=== PATIENT | female | born 1935 | race Caucasian/White ===

== ENCOUNTER → 2023-12-25 10:49 | Outpatient (REF) | payer MEDICARE, SELFPAY | LOC: HWRCS 10:49 | PROVIDERS: ATTENDING PHYSICIAN Internal Medicine Cardiovascular Disease; FAMILY PHYSICIAN Family Medicine | DX: I35.0 Nonrheumatic aortic (valve) stenosis (principal); I34.2 Nonrheumatic mitral (valve) stenosis; I35.1 Nonrheumatic aortic (valve) insufficiency; I34.0 Nonrheumatic mitral (valve) insufficiency; I10 Essential (primary) hypertension | CPT/HCPCS: 93306 ==

== ENCOUNTER → 2024-04-19 11:25 | Outpatient (REF) | payer MEDICARE, SELFPAY | LOC: MRI 3T 11:25 | PROVIDERS: ATTENDING PHYSICIAN Physician Assistant; FAMILY PHYSICIAN Family Medicine | DX: M54.16 Radiculopathy, lumbar region (principal) | CPT/HCPCS: 72148 ==

== ENCOUNTER 2024-12-22 18:10 | Inpatient (IN) | payer MEDICARE, SELFPAY ==
[2024-12-22] VITALS (21 sets, daily range): BP systolic 101–143; BP diastolic 61–108; BMI 28.7
--- NOTE | 2024-12-22 15:53 | ED.GENMED ---
History of Present Illness
General
Chief Complaint: Heart Rate Problem
Source: patient and family
Time Seen by Provider: 12/22/24 15:36
History of Present Illness
History of Present Illness:
This patient is an 89-year-old female presents the emergency department accompanied by her daughter and. She says she has been 'not feeling up to par' with increasing stress for the past week. She notes intermittent episodes throughout the week
where she feels like her heart is racing and then it spontaneously resolves. Today, while going upstairs she again felt like her heart was racing which prompted her visit here. She denies associated chest pain or pressure, leg swelling, abdominal
pain, nausea, vomiting, diaphoresis, dizziness, headache. She does note very minimal dyspnea with this now. She also has been reporting vague back and neck discomfort, mild, for at least the past week or 2, none currently. While she denies leg
swelling, she states that she gets discomfort in her left leg particular during the night. Patient denies other complaints.
Past History
Past History
ED Past Medical History: GERD, HTN, Hypercholesterolemia and Other (Arthritis)
Social History
Tobacco: Non-smoker
Alcohol: Occasional
Drug: None
Living: alone
Phy Exam
Physical Exam
Physical Exam:
GENERAL: Alert , in no apparent distress
EYE: pupils equal and reactive
NECK: Supple, no significant adenopathy.
ENT: o/p clr, mmm.
CARDIAC: Irregularly irregular, tachycardic
LUNGS: Clear breath sounds bilaterally, no acute respiratory distress, no wheezes rales or rhonchi
ABDOMEN: Soft, without focal tenderness, no r/g, no cvat
NEUROLOGICAL: Alert and oriented, no focal neuro deficits
SKIN: Warm and dry, skin intact.
MUSCULOSKELETAL: No edema, well perfused.
PSYCH: Normal and appropriate interaction.
Scores
[id number] Score for Afib Stroke Risk
Age in Years (65=0, 65-74=1, >/=75=2): > or = 75
Sex (Female=+1): Female
Congestive Heart Failure History (Yes=+1): No
Hypertension History (Yes=+1): Yes
Stroke/TIA/Thromboembolism History (Yes=+2): No
Vascular Disease History (Yes=+1): No
Diabetes Mellitus (Yes=+1): No
Score: 4
Anticoagulation Recommendations: Recommend anticoagulation (as validated in nonvalvular fib)
Course
Orders/Labs/Results
Orders:
Orders
12/22/24 Breakfast
Cholesterol Lowering
Cholesterol Lowering: Sodium, 2 Gram
12/22/24 15:22
ECG [Electrocardiogram (*1)] Urgent
Reason for Study: Palpitations
EKG- Treatment ONCE
12/22/24 15:35
EKG [Electrocardiogram (*1)] Urgent
Reason for Study: Palpitations
12/22/24 15:36
EKG- Treatment ONCE
12/22/24 15:39
Complete Blood Count/With Diff Urgent
Comprehensive Metabolic Panel Urgent
12/22/24 15:51
Heparin 4,000 units IV NOW STA
12/22/24 15:52
Diltiazem 125 mg/125 ml Nss [Cardizem] 125 mg in 125 ml IV NOW
Initial dose in mg/hr, then titrate:: 5
Titrate to keep:: Heart rate 80-100 bpm
Titrate by mg/hr:: 5 mg/hr
Frequency of titrations (minutes):: 15
Maximum dose in mg/hr:: 15
Diltiazem HCl [Cardizem] 20 mg IV NOW STA
CR Chest - 2 Views Urgent
Comment:
Reason For Exam: new onset afib
US Periph Venous LOWER Ext LT Urgent
Comment:
Reason For Exam: pain
12/22/24 16:00
Heparin 26844 Units/250 ml 25,000 units in 250 ml IV PER PROTOCOL
Weight to be used for heparin protocol in kilograms (kg):: 68.2
Protocol:: Cardiac Tx/Acute Coronary
PTT Goal Range to be used:: PTT 73 to 111 seconds
Order type:: Initial
INITIAL Infusion Dose (UNITS/KG/hr) & then follow protocol:: 12 units/kg/hr
Infusion Dose in UNITS/hr & then follow protocol (UNITS/hr):: 800
INFUSION RATE in mL/hr & then follow protocol (mL/hr):: 8
PTT less than or equal to 64 seconds:: Increase rate by 200 units/hr (+ 2 mL/hr)
PTT 64.1 to 72.9 seconds:: Increase rate by 100 units/hr (+ 1 mL/hr)
PTT 73 to 111 seconds:: Target Range. No change in rate.
PTT 111.1 to 130.9 seconds:: Decrease rate by 100 units/hr (- 1 mL/hr)
PTT 131 to 199.9 seconds:: HOLD for 1 hr. Then decrease rate by 200 units/hr (- 2 mL/hr)
PTT greater than or equal to 200 seconds:: HOLD for 2 hrs & Notify Provider. Then decrease by 200 units/hr (-
2 mL/hr)
Lab follow-up:: Each change, PTT q6h until 2 consecutive are therapeutic. Then PTT
daily.
12/22/24 16:07
0.9% Sodium Chloride 250 ml [Nss] 250 ml IV BOLUS
12/22/24 16:12
PTT Urgent
Comment: Obtain baseline before beginning heparin infusion if not already collected
Prothrombin Time Urgent
TSH Urgent
12/22/24 16:51
Troponin I Urgent
12/22/24 17:36
Admit/Transfer Patient As Directed
Co-Sign Provider:
Level of Care: Inpatient admission
Assign to:: IVU
Physician / Group: rylee delcid
Diagnosis: atrial fib with RVR
Reason for Hospitalization: atrial fib with RVR
Expected length of stay greater than two midnights?: Yes
ELOS- Estimated Length of Stay in days: 3
I certify the patient meets the requirements for IP care: Yes
12/22/24 17:37
PRN Pain Medication Management As Directed
May give lesser potent ordered pain med per pt: Yes
preference::
Protocol:: Medication orders for pain may be administered in a
manner that supports deferring to patient preference
when the pt is:
- Requesting an ordered lesser potent pain medication.
Least to most potent pain medications are defined
as: acetaminophen < NSAID < tramadol < opioids
(morphine, oxycodone, hydromorphone).
- Requesting a lesser dose of the same medication IF
ORDERED.
- Requesting a less intrusive route of administration
if both routes are prescribed by the provider (PO <
IV).
12/22/24 17:38
Code Status As Directed
Resuscitation Status: Full Code
12/22/24 17:43
Add On- LAB Urgent
Tests Added?: PT/INR
12/22/24 20:37
Bisacodyl [Dulcolax] 10 mg RECTAL [id number] PRN
Diltiazem 125 mg/125 ml Nss [Cardizem] 125 mg in 125 ml IV PER PROTOCOL
Currently infusing. Continue current dose and titrate:: Yes
Titrate to keep:: Heart rate 80-100 bpm
Titrate by mg/hr:: 5 mg/hr
Frequency of titrations (minutes):: 15
Maximum dose in mg/hr:: 15
Docusate W/Senna [Senokot-S] 1 tablet PO BIDPRN PRN
Polyethylene Glycol Powder [Miralax] 17 grams PO DAILYPRN PRN
cycloSPORINE [Restasis 0.05% Ophthalmic Emulsion] 1 drops BOTH EYES BID
12/22/24 20:37
Echo 2D MMode Color/Doppler Routine
Reason for Study: sob
CARDIOLOGY CONSULT Routine
Consulting Provider: Bradley Hensley
Was physician already notified: Yes
Heparin Protocol- PTT Orders As Directed
PTT per Heparin protocol: -Obtain CBC and baseline PTT - if not already collected.
-Obtain PTT 6 hours from start of infusion. Then, every 6 hours until 2 consecutive
PTT's are therapeutic. Then, PTT Daily.
-With each rate change, obtain PTT every 6 hours until 2 consecutive PTT's are
therapeutic. Then, PTT Daily.
Activity As Directed
Activity Level: As Tolerated
Intake/ Output As Directed
Frequency: Per unit guidelines
Notify MD As Directed
Notify physician if: PTT is greater than or equal to 200.
Vital Signs As Directed
Frequency: Per unit guidelines
Weight As Directed
Frequency: Daily
12/22/24 22:00
Cetirizine HCl [Zyrtec] 10 mg PO HS
12/22/24 22:20
Magnesium Routine
12/23/24 06:00
Cardiovascular Evaluation IN AM
Comprehensive Metabolic Panel IN AM
TSH Reflex To Free T4 IN AM
12/23/24 08:00
Docusate Sodium [Colace] 300 mg PO DAILY
Irbesartan [Avapro] 150 mg PO DAILY
Meloxicam [Mobic] 7.5 mg PO DAILY
Pantoprazole [Protonix] 40 mg PO DAILY
Pravastatin Sodium [Pravachol] 40 mg PO DAILY
fluticasone propionate 2 spray NASAL DAILY
12/24/24 06:00
Complete Blood Count/No Diff Q2D
Comment: notify provider: Platelet count < 130,000 or decrease by 50% from baseline
Comprehensive Metabolic Panel IN AM
12/25/24 06:00
Comprehensive Metabolic Panel IN AM
12/26/24 06:00
Complete Blood Count/No Diff Q2D
Comment: notify provider: Platelet count < 130,000 or decrease by 50% from baseline
12/28/24 06:00
Complete Blood Count/No Diff Q2D
Comment: notify provider: Platelet count < 130,000 or decrease by 50% from baseline
12/30/24 06:00
Complete Blood Count/No Diff Q2D
Comment: notify provider: Platelet count < 130,000 or decrease by 50% from baseline
01/01/25 06:00
Complete Blood Count/No Diff Q2D
Comment: notify provider: Platelet count < 130,000 or decrease by 50% from baseline
01/03/25 06:00
Complete Blood Count/No Diff Q2D
Comment: notify provider: Platelet count < 130,000 or decrease by 50% from baseline
01/05/25 06:00
Complete Blood Count/No Diff Q2D
Comment: notify provider: Platelet count < 130,000 or decrease by 50% from baseline
01/07/25 06:00
Complete Blood Count/No Diff Q2D
Comment: notify provider: Platelet count < 130,000 or decrease by 50% from baseline
Abnormal Lab Results
12/22/24 12/22/24 12/22/24
15:39 16:12 16:51
RBC 3.69 L 10^6/uL
(4.20-5.40)
Hgb 11.3 L g/dL
(12.0-16.0)
Hct 33.3 L %
(37.0-47.0)
MPV 10.7 H fL
(7.4-10.4)
Lymphocytes % 19.5 L %
(20.5-51.1)
PT 15.1 H Sec
(11.4-14.6)
Chloride 110 H mmol/L
(98-107)
Carbon Dioxide 19 L mmol/L
(22-30)
BUN 35 H mg/dl
(7-17)
Glucose 118 H mg/dl
(70-99)
AST 60 H U/L
(14-36)
ALT 75 H U/L
(0-35)
Troponin I 0.042 H* ng/ml
12/22/24 15:39
12/22/24 15:39
Vital Signs
Initial and Last Documented VS:
Initial Vital Signs
Temp Pulse Resp BP Pulse Ox
98.2 F 164 18 142/86 97
12/22/24 15:28 12/22/24 15:28 12/22/24 15:28 12/22/24 15:28 12/22/24 15:28
Last Documented Vital Signs
Temp Pulse Resp BP Pulse Ox
97.9 F 87 16 116/61 95
12/22/24 22:06 12/22/24 22:06 12/22/24 22:06 12/22/24 22:06 12/22/24 22:06
*Pulse Oximetry
SaO2: 97
Oxygen Mode of Delivery: Room air
Patient hypoxic: no
*Critical Care Note
Total Time (30-74mins, 75-104mins- exclusive of procedures): 31
Update Note
Update Note:
Patient presents to the Emergency Department with __palpitations and mild dyspnea
Number and Complexity of Problems Addressed at the Encounter
� Chronic conditions affecting care:
� Acute Exacerbation and/or Progression of Chronic Illness:
� Differential Diagnosis includes: But not limited to hyperthyroidism, SVT, A-fib, a flutter, ACS, etc. etc.
Amount and/or Complexity of Data to be Reviewed and Analyzed
� I performed an independent evaluation of and my interpretation is:
EKG: Read by me, A-fib with RVR, no acute ischemia
CT:
Xrays:
Laboratory Studies: Mild anemia, normal white blood cell count, mild prerenal azotemia (patient reports poor p.o. intake today, IV fluids were started), nonspecific mild LFT abnormalities
Other:
� Review of other/old records reveals:
� Clinical information was obtained by an independent historian: Daughter and who was at bedside
� Prescriptions/Medications Considered but not given:
� Further testing considered but not performed:
Risk of Complications and/or Morbidity or Mortality of Patient Management
� Social determinants of health affecting care:
� Discussion with other providers (PCP, Hospitalists, Consultants, etc):
� Escalation of care including admission/observation vs risk of discharge considered: Patient in A-fib with RVR. Cardizem drip ordered with bolus, heparin drip ordered, Long discussion with patient and daughter regarding
findings here and plan of care. Patient states she is not on anticoagulation. She lives alone with her cat and has a very supportive family.
447 p,m Pt resting comfortably, cardizem gtt at 5, will increase to 10 given rate 110's. bp stable.
5:19 PM patient now on drip at 10, rate well-controlled, patient remains comfortable without new complaints. Chest x-ray pending, ultrasound pending. Patient will be admitted to the hospitalist with expected cardiology consult by them. Case
discussed with hospitalist via [place] text and patient updated
ED Attending Note
-
Portions of this chart may have been created with voice recognition software.� Occasional wrong word or��sound alike� substitutions may have occurred due to the inherent limitations of voice recognition software.
Discharge Plan
Departure
Patient Disposition: Admit
Date of Disposition: 12/22/24
Time of Disposition: 17:20
Admit to: Telemetry
Presentation/result/management discussed w/ accepting MD/DO: Hospitalist
Discharge Problem:
Atrial fibrillation
Interventions
Interventions:
*Risk Screen - Suicide Last Done: 12/22/24 15:29
*General Assessment Last Done: 12/22/24 15:29
*Neglect/Abuse Screening Last Done: 12/22/24 15:29
*ED- Fall Risk Assessment Last Done: 12/22/24 15:40
*ED COVID-19 Vaccine History Last Done: 12/22/24 15:46
*Nursing Disposition Last Done: 12/22/24 20:12
ED- Cardiac Assessment Last Done: 12/22/24 15:40
ED- Pulmonary Assessment Last Done: 12/22/24 15:40
Discharge Date and Time
Discharge Date/Time: 12/22/24 20:12
[2024-12-22 16:00] LABS: Hematocrit 33.3 % (37.0-47.0); Hemoglobin 11.3 g/dL (12.0-16.0); Mean Corp Hgb Conc. 33.9 g/dL (33.0-37.0); Mean Corpuscular Volume 90.2 fL (81.0-99.0); Nucleated Red Blood Cells % 0 %; Platelet Count 135 10^3/uL (130-400); Red Cell Dist. Width 13.8 % (11.5-14.5)
[2024-12-22] MEDS: CARDIZEM 125 IV (16:07)
[2024-12-22 16:08] LABS: ALT (SGPT) 75 U/L (0-35); AST (SGOT) 60 U/L (14-36); Albumin 4.4 g/dl (3.5-5.0); Alkaline Phosphatase 85 U/L (38-126); Blood Urea Nitrogen 35 mg/dl (7-17); Calcium 9.8 mg/dl (8.4-10.2); Carbon Dioxide 19 mmol/L (22-30); Chloride 110 mmol/L (98-107); Glucose 118 mg/dl (70-99); Potassium 4.9 mmol/L (3.5-5.1); Sodium 137 mmol/L (135-145); Total Protein 7.2 g/dl (6.3-8.2); eGFR > 60.00
[2024-12-22 16:45] LABS: APTT 28.1 Sec (23.4-35.0)
[2024-12-22] MEDS: HEPARIN 4000 UNITS IV (16:51)
[2024-12-22] MEDS: NSS 250 IV (16:53)
[2024-12-22] MEDS: HEPARIN 25000 UNITS/250 ML IV (17:14)
--- NOTE | 2024-12-22 17:21 | HPS.HSE ---
Family Physician
-
Family Physician: Kenan Jaffe
Chief Complaint
-
elevated HR.
History of Present Illness
89-year-old female with past medical history for hypertension, hypercholesterolemia, GERD presented to us with racing of her heart for past one week. she feels it with exertion, it gets better when resting. she was also feeling sob with exertion.
today she felt the symptoms as she was on her steps and did not get better with rest and she felt dizzy when stood up. denied [place], or syncope. denied fever, chills,cough, congestion, chest pain. denied abdominal pain,,v,d. denied dysuria or
hematuria.
upon arrival noted atrial fib with RVR. initiated on heparin and cardizem drip.admitting for further management.
Medical History
Past Medical History
Past Medical History: Reports Other
Additional Past Medical History:
Hypertension, hyper cholesteremia, GERD, DJD,
Past Surgical History: Reports Other
Additional Past Surgical History:
knee replacement, bilateral cataract surgery, carpal tunnel release
Social History
Tobacco: Non-smoker
Alcohol: None
Drug: None
Employment: Employed
Family History
Family History: Not pertinent
Allergies / Home Medications
Allergies reflects when Allergies were last updated in [facility].
Home Medications with original date entered in [facility]
Allergy/Medication List:
Allergies
Allergy/AdvReac Type Severity Reaction Status Date / Time
No Known Drug Allergies Allergy - Verified 01/18/14 11:22
seasonal Allergy congestion Uncoded 01/18/14 11:22
Home Medications
acetaminophen 500 mg tablet (Tylenol Extra Strength) 500 mg PO DAILYPRN PRN pain 10/02/11
coenzyme Q10 100 mg capsule (Co Q-10) 100 mg PO DAILY 10/02/11
omeprazole 40 mg capsule,delayed release 40 mg PO DAILY 10/02/11
camphor-menthol 0.2 %-3.5 % topical gel 1 applic topical DAILYPRN PRN leg cramps 12/22/24
cetirizine 10 mg tablet (Zyrtec) 10 mg PO HS 12/22/24
cholecalciferol (vitamin D3) 25 mcg (1,000 unit) tablet 25 mcg PO DAILY 12/22/24
cimetidine 200 mg tablet 200 mg PO DAILYPRN PRN heartburn 12/22/24
cyclosporine 0.05 % eye drops in a dropperette 1 drp BOTH EYES BID 12/22/24
docusate sodium 100 mg tablet 300 mg PO DAILY 12/22/24
fluticasone propionate 50 mcg/actuation nasal spray,suspension 2 spray intranasal DAILY 12/22/24
irbesartan 150 mg tablet 150 mg PO DAILY 12/22/24
lactase 3,000 unit tablet (Lactaid) 3,000 unit PO AC PRN lactose intolerance 12/22/24
meloxicam 7.5 mg tablet 7.5 mg PO DAILY 12/22/24
pravastatin 40 mg tablet 40 mg PO DAILY 12/22/24
psyllium 1 packet PO DAILYPRN PRN constipation 12/22/24
simethicone 125 mg tablet 126 mg PO DAILYPRN PRN gas 12/22/24
therapeutic multivitamin 1 tab PO DAILY 12/22/24
Review of Systems
-
Constitutional: Reports No Symptoms
EENT: Reports No Symptoms
Respiratory: Reports No Symptoms
Cardiac: Reports Palpitations
Abdomen/GI: Reports No Symptoms
: Reports No Symptoms
Musculoskeletal: Reports No Symptoms
Skin: Reports No Symptoms
Neurological: Reports No Symptoms
Endocrine: Reports No Symptoms
Hematologic/Lymphatic: Reports No Symptoms
Psych: Reports No Symptoms
Physical Exam
Vital Signs
Vital Signs
Temp Pulse Resp BP Pulse Ox
98.2 F 121 15 114/91 92
12/22/24 15:28 12/22/24 16:45 12/22/24 16:45 12/22/24 16:45 12/22/24 16:45
Physical Exam
General: Well Developed, Well Nourished and No Apparent Distress
HEENT: NormoCephalic, Moist mucous membranes and Atraumatic
Respiratory: Clear
Cardiac: Irregular Rhythm and Tachycardia; No Murmur or Rub
GI: Soft, Non Tender, Non Distended and Normal Bowel Sounds; No Organomegaly
Rectal: Deferred by Provider
Musculoskeletal: No Clubbing, No Cyanosis and No Edema
Skin: No Rash
Neuro: AO x 3 and Nonfocal/grossly intact
Psych: Calm
Laboratory Results
-
12/22/24 15:39
12/22/24 15:39
Laboratory Results
APTT 28.1 Sec (23.4-35.0) 12/22/24 16:12
Total Bilirubin 0.8 mg/dl (0.2-1.3) 12/22/24 15:39
AST 60 U/L (14-36) H 12/22/24 15:39
ALT 75 U/L (0-35) H 12/22/24 15:39
Alkaline Phosphatase 85 U/L (38-126) 12/22/24 15:39
Data Reviewed
-
Lab Data: Labs Reviewed by me
Impression/Plan
-
#new onset atrial fib with RVR
-Cardizem and heparin drip
-obtain ECHO
-TSH, mag and cardiovascular eval
-cardiology consulted
-EKG with atrial fib wtih RVR
#anemia of chronic disease
-hgb stable at 11.3, no active bleeding
-ctm
#chronic transaminitis
-ast 60,alt 75
-CTm
#essential HTN/HLD
-irbesartan continued
-statin continued
#GERD
-PPI continued
#DVT prophylaxis
-heparin drip
#CODE status
-full code.
[2024-12-22 17:23] LABS: TSH 1.39 uIU/ml (0.47-4.68)
[2024-12-22 17:29] LABS: Troponin I 0.042 ng/ml
[2024-12-22 17:59] LABS: INR 1.16; PT 15.1 Sec (11.4-14.6)
--- NOTE | 2024-12-22 18:20 | W.PN.UPDATE ---
Update Note
Progress Note Update
This note serves as an addendum to the H&P by communications associate Joana SIMPSON�
HPI
89F HX HT, HLD, GERD pw racing heart for past one week
- racing especially withexertion- better when resting
- sob with exertion
- felt dizzy when stood up.
At ER:
noted atrial fib with RVR. initiated on heparin and cardizem drip
Relevant VS
Temp Pulse Resp BP Pulse Ox
98.2 F 109 19 132/78 93
12/22/24 15:28 12/22/24 17:30 12/22/24 17:30 12/22/24 17:30 12/22/24 17:30
PE
Gen: NAD
HEENT: moist OM
Neck: no JVD
Lungs: CTA
Cor: Irregular Rhythm and Tachycardia
Abdomen:�benign
POSTPARTUM RN: NFND
MS: no edema
Psych: Nl mood and affect
Relevant data�
12/22/24 12/22/24
15:39 16:51
RBC 3.69 L
Hgb 11.3 L
Hct 33.3 L
MPV 10.7 H
Lymphocytes % 19.5 L
Chloride 110 H
Carbon Dioxide 19 L
BUN 35 H
Glucose 118 H
AST 60 H
ALT 75 H
Troponin I 0.042 H*
EKG
ATRIAL FIBRILLATION WITH RAPID VENTRICULAR RESPONSE
NONSPECIFIC ST AND T WAVE ABNORMALITY
ABNORMAL ECG
ASSESSMENT & PLAN
New onset Prx AF with RVR
- agree with Cardizem gtt and and heparin gtt
- ECHO in AM
- TSH, Mg and cardiovascular eval
- [facility] card consult - Known to Dr Bhupinder Abernathy( [facility])
Elevated TPNI
- suspect NIMI
- Trend TPNI till peak
- await TTE
- Future ischemic evaluation ?
Anemia of chronic disease
- stable Hgb @ 11.3
- no active bleeding
chronic transaminitis
HLD
- Trend LFts
- cont MASH FILTER CLOTH CHANGER Statin
Essential HTN
-on MASH FILTER CLOTH CHANGER Irbesartan
- Statin continued
DVT Px: Heparin gtt
Full code
IP TLM
[2024-12-22] MEDS: RESTASIS 0.05% OPHTHALMIC EMULSION 1 DROPS BOTH EYES (21:56)
[2024-12-22] MEDS: ZYRTEC 10 MG PO (21:56)
[2024-12-22 22:47] LABS: APTT 65.3 Sec (23.4-35.0)
[2024-12-22 23:41] LABS: Magnesium 2.0 mg/dl (1.6-2.3)
[2024-12-23] MEDS: LIDOCAINE 4% PATCH 1 PATCH TOPICAL (03:08)
[2024-12-23 03:14] VITALS: BP 120/73
[2024-12-23 03:15] VITALS: BP 120/73
[2024-12-23 03:16] VITALS: BMI 28.7
[2024-12-23 05:48] LABS: Albumin 3.7 g/dl (3.5-5.0); Carbon Dioxide 23 mmol/L (22-30); Total Protein 6.2 g/dl (6.3-8.2)
[2024-12-23 05:56] LABS: APTT 71.5 Sec (23.4-35.0)
[2024-12-23 06:24] LABS: ALT (SGPT) 61 U/L (0-35); AST (SGOT) 41 U/L (14-36); Alkaline Phosphatase 85 U/L (38-126); Blood Urea Nitrogen 29 mg/dl (7-17); Calcium 9.1 mg/dl (8.4-10.2); Chloride 111 mmol/L (98-107); Estimated Creatinine Clearance 36 ml/min; Glucose 100 mg/dl (70-99); HDL Cholesterol 73 mg/dl; LDL Cholesterol, Calculated 84 mg/dl; Potassium 4.3 mmol/L (3.5-5.1); Sodium 139 mmol/L (135-145); Very Low Density Lipoprotein 12 mg/dl (0-30); eGFR > 60.00
[2024-12-23 08:17] VITALS: BP 125/91
[2024-12-23] MEDS: COLACE PO ×2 (08:27→08:31)
[2024-12-23] MEDS: PRAVACHOL 40 MG PO (08:27)
[2024-12-23] MEDS: CARDIZEM 125 IV (08:27)
[2024-12-23] MEDS: RESTASIS 0.05% OPHTHALMIC EMULSION 1 DROPS BOTH EYES ×2 (08:27→20:02)
[2024-12-23] MEDS: MOBIC 7.5 MG PO (08:27)
[2024-12-23] MEDS: PROTONIX 40 MG PO (08:27)
[2024-12-23] MEDS: AVAPRO 150 MG PO (08:27)
--- NOTE | 2024-12-23 08:36 | W.PN.HOSP.TC ---
Today's Communication/Plan
-
see a/p
Assessment / Plan
Assessment / Plan
Physical Exam
General: No acute distress, appears comfortable at this time
HEENT: NormoCephalic, Moist mucous membranes and Atraumatic
Respiratory: Clear
Cardiac: Irregular Rhythm non-tachy; No Murmur or Rub
GI: Soft, Non Tender, Non Distended and Normal Bowel Sounds; No Organomegaly
Musculoskeletal: No Clubbing, No Cyanosis and No Edema
Skin: No Rash
Neuro: AO x 3 conversant coherent
Psych: Calm
89F HTN HLD GERD here for new onset afib rvr
#new onset atrial fib with RVR
-Cardizem and heparin drip
-ECHO pending
-TSH, mag and cardiovascular eval
-cardiology consulted
-EKG with atrial fib wtih RVR
#anemia of chronic disease
-monitor
#mild transaminitis
-monitor
#essential HTN/HLD
-irbesartan continued
-statin continued
#GERD
-PPI continued
#DVT prophylaxis
-heparin drip
#CODE status
-full code.
discussed with patient and patient's daughter Dara
I spent a total of 50 minutes with the patient or on the floor. More than 50% of this time involved counseling and coordination of care.
Anticipated Discharge: 24 - 48 hours
Subjective/Interval History
-
Date of Service: December 23, 2024
No acute distress, sitting up comfortably in chair, overall reports feeling well. Denies palpitation or chest pain. Daughter Glory present during evaluation.
Objective Data
-
Labs:
Laboratory Results
12/22/24 12/22/24 12/23/24
22:20 23:15 05:05
APTT 65.3 H Cancelled 71.5 H
Sodium 139
Potassium 4.3
Chloride 111 H
Carbon Dioxide 23
BUN 29 H
Creatinine 0.9
Glucose 100 H
Calcium 9.1
Total Bilirubin 0.7
AST 41 H
ALT 61 H
Alkaline Phosphatase 85
12/23/24
12:15
APTT Pending
Sodium
Potassium
Chloride
Carbon Dioxide
BUN
Creatinine
Glucose
Calcium
Total Bilirubin
AST
ALT
Alkaline Phosphatase
Vital Signs:
Vital Signs
Temp Pulse Resp BP Pulse Ox
97.5 F 85 16 120/73 97
12/23/24 08:16 12/23/24 07:15 12/23/24 08:16 12/23/24 03:15 12/23/24 08:16
I&O
12/22/24 12/23/24 12/24/24
06:59 06:59 06:59
Intake Total 480 / 480
Balance 480 / 480
--- NOTE | 2024-12-23 09:04 | PTCARENOTE ---
Cardizem gtt infusing at 5 ml/hr and Heparin gtt infusing at 1000 units/hr. Tele remains afib. HR 80-100s. Assessment completed as documented. Pt has no complaints of pain/discomfort at this time. Plan of care reviewed w/ pt and verbalizes
understanding. Pt OOB in chair; call [facility]ison w/in reach.
--- NOTE | 2024-12-23 09:25 | CON.CAR ---
Addendum entered and electronically signed by Justin Cadena MD 12/23/24 12:35:
I saw and examined the patient.
The PAINTER APPRENTICE or PA's note was reviewed and I agree with the note.
Comment: General: Well developed, well nourished in NAD.
Neck: Supple, no JVD, HJR, carotids +2 B/L, no bruits bilaterally.
Heart: Non displaced PMI, irregular, no murmurs, No S3, S4, no rubs.
Lungs: Clear to auscultation bilaterally, no wheeze, rhonchi, rubs bilaterally,
normal expiratory phase.
Abdomen: Normal bowel sounds, soft, non-tender, non-distended.
Extremities: No clubbing, cyanosis or edema bilaterally.
Neuro: Grossly nonfocal, awake, alert and oriented x3.
Francoise has a history of hypertension, hyperlipidemia, reflux, aortic stenosis, mitral stenosis. She presents with palpitations and shortness of breath for 1 week. Palpitations were worse with climbing steps. She thinks she also may be retaining
fluid. Cardiology is consulted for A-fib.
She remains in A-fib with relatively poor heart rate control on IV Cardizem. There may be an element of CHF as well with pleural effusion noted on chest x-ray. Will repeat echocardiogram to assess and MS. Will start Eliquis 5 mg p.o. twice
daily and have case management assess pricing. If remains in A-fib we will do GABO/cardioversion on 9/3 AM. Discussed in detail with patient and daughter at bedside.
Original Note:
Consultation
Consultation Request
Date/Time Consultation Requested: 12/22/2024 20:37
Date/Time Consultation Performed: 12/23/2024 09:00
Requesting Provider: Mariana Mckeon
Performing Provider: Shaun Brown DO (Resident); Justin Cadena MD
Reason for Consultation: Atrial Fibrillation
Medical History
-
Chief Complaint: Palpitations, GREGG
History of Present Illness:
Mrs. Lopez is a 89F with a PMHx of HTN, HLD, GERD, nonrheumatic aortic stenosis, and nonrheumatic mitral stenosis who presented with palpitations x 1 week. Patient states that she has had 3 episodes of heart racing in the last week and all of
them associated with exertion, such as going up a flight of stairs. Associated with these episodes is dyspnea on exertion. She states that once she is at rest, the palpitations and GREGG resolve completely. She notes the feelings of GREGG may have
preceded this week, and that she often gets tired more easily with physical activity, though she was not concerned enough until this week. She otherwise denies a history of palpitations in the past, however, she notes that her PCP may have noted
irregular heart rhythm in the past, and she was sent to the field associate for follow up. She denies any recent illness or infections. Patient otherwise denies any CP, cough, vision changes (other than age-related), near-syncope, orthopnea, lower
extremity edema, calf tenderness.
ED COURSE
Irregular and tachycardic on examination.
EKG: Atrial fibrillation w/ RVR. Trop = 0.042.
Hb 11.3 (chronic), electrolytes WNL, Cr 0.9, TSH nml.
CXR: Tiny R pleural effusion, mild LLL developing pneumonia vs. atelectasis.
US LLE: No DVT.
Prior Studies
TTE 12/2023: EF 60%, aortic stenosis, severe mitral stenosis, severely dilated left atrium.
Past Medical History
Past Medical History: Other (HTN, HLD, GERD, nonrheumatic aortic stenosis, and severe nonrheumatic mitral stenosis)
Past Surgical History: Orthopedic
Social History
Tobacco: Non-Smoker
Alcohol: Occasional (every other day, 1 jey )
Drug: None
Personal:
Living: Alone (multi-story house. Movnig to single level abode at [place] in one month. )
Family History
Family History: Other (Father of [place] at 64; Mother at 94, had hx of unknown heart disease. Unsure of family history of a/fib. )
Allergies / Home Medications
Allergy/AdvReac Type Severity Reaction Status Date / Time
No Known Drug Allergies Allergy - Verified 01/18/14 11:22
seasonal Allergy congestion Uncoded 01/18/14 11:22
�Medication �Instructions �Recorded �Confirmed �Type
acetaminophen 500 mg tablet 500 mg PO DAILYPRN PRN pain 10/02/11 12/22/24 History
(Tylenol Extra Strength)
coenzyme Q10 100 mg capsule (Co 100 mg PO DAILY Supplement 10/02/11 12/22/24 History
Q-10)
omeprazole 40 mg capsule,delayed 40 mg PO DAILY Gastrointestinal 10/02/11 12/22/24 History
release Issue
camphor-menthol 0.2 %-3.5 % 1 applic topical DAILYPRN PRN leg 12/22/24 12/22/24 History
topical gel cramps
cetirizine 10 mg tablet (Zyrtec) 10 mg PO HS Supplement 12/22/24 12/22/24 History
cholecalciferol (vitamin D3) 25 25 mcg PO DAILY Supplement 12/22/24 12/22/24 History
mcg (1,000 unit) tablet
cimetidine 200 mg tablet 200 mg PO DAILYPRN PRN heartburn 12/22/24 12/22/24 History
cyclosporine 0.05 % eye drops in a 1 drp BOTH EYES BID Eye Condition 12/22/24 12/22/24 History
dropperette
docusate sodium 100 mg tablet 300 mg PO DAILY Gastrointestinal 12/22/24 12/22/24 History
Issue
fluticasone propionate 50 2 spray intranasal DAILY Allergies 12/22/24 12/22/24 History
mcg/actuation nasal
spray,suspension
irbesartan 150 mg tablet 150 mg PO DAILY Blood Pressure 12/22/24 12/22/24 History
lactase 3,000 unit tablet (Lactaid) 3,000 unit PO AC PRN lactose 12/22/24 12/22/24 History
intolerance
meloxicam 7.5 mg tablet 7.5 mg PO DAILY Pain 12/22/24 12/22/24 History
pravastatin 40 mg tablet 40 mg PO DAILY High Cholesterol 12/22/24 12/22/24 History
psyllium 1 packet PO DAILYPRN PRN 12/22/24 12/22/24 History
constipation
simethicone 125 mg tablet 126 mg PO DAILYPRN PRN gas 12/22/24 12/22/24 History
therapeutic multivitamin 1 tab PO DAILY Supplement 12/22/24 12/22/24 History
Review of Systems
-
All other systems: Negative unless noted
Physical Exam
Vital Signs
Temp Pulse Resp BP Pulse Ox
97.5 F 82 16 125/91 97
12/23/24 08:16 12/23/24 08:45 12/23/24 08:16 12/23/24 08:17 12/23/24 08:17
Lab Results
12/22/24 15:39
12/23/24 05:05
Troponin I 0.042 ng/ml H* 12/22/24 16:51
Physical Exam
General: No Apparent Distress and Comfortable
Respiratory: Clear and Non Labored Respirations; Negative Wheezes, Crackles or Rhonchi
Cardiac: Irregular Rhythm and Murmur (2/6 systolic ejection murmur); Negative Peripheral Edema or Calf Tenderness
Musculoskeletal: No Clubbing, No Cyanosis and No Edema
Skin: Warm
Neuro: Awake, Alert and Oriented
Psych: Calm
Impression / Plan
-
Francoise Lopez is a 89F with a PMHx of HTN, HLD, GERD, nonrheumatic aortic stenosis, and nonrheumatic mitral stenosis who presented with palpitations x 1 week particularly with exertion, found to be in atrial fibrillation with RVR in the ED with
tiny pleural effusion on CXR, admitted and started on Heparin and Cardizem drips. She continues to have an irregular rhythm, but is adequately rate controlled at an average of 90bpm. Unsure if this is new-onset paroxysmal atrial fibrillation within
the past week without any obvious inciting event, or if the patient has been having asymptomatic atrial fibrillation for some time, and only recently began having symptoms. [id number] score is 4, HAS-BLED Score is 2. We were consulted for
evaluation and management of atrial fibrillation.
PLAN
Continue Cardizem gtt
Update GABO in AM
NPO after midnight
If patient continues to be in A/fib, plan for cardioversion in AM if GABO is negative for thrombus
BNP in AM to r/o CHF in the setting of atrial fibrillation
Low-dose Lasix given small pleural effusion as seen on CXR
Will need to be discharged on anticoagulation; CM consult to derek Laura
Data Reviewed
-
EKG: Tracing Personally Visualized and interpreted and Report Reviewed by me
Radiology: Image Personally Visualized and interpreted, Report Reviewed by me and Discussed with Patient
Ultrasound: Report Reviewed by me and Discussed with Patient
Medical Tests (Nuc Med, Echo etc): Report Reviewed by me and Discussed with Patient
Labs: Labs Reviewed by me and Discussed with Patient
Old Records: Reviewed
Total Time Spent with Patient (in minutes): 42
[2024-12-23 09:46] LABS: Troponin I 0.058 ng/ml
[2024-12-23 11:24] VITALS: BP 123/76
[2024-12-23] MEDS: TYLENOL 650 MG PO (11:24)
[2024-12-23] MEDS: LASIX 40 MG IV (11:24)
[2024-12-23] MEDS: ELIQUIS 5 MG PO ×2 (11:33→20:02)
--- NOTE | 2024-12-23 11:44 | PTCARENOTE ---
Pt c/o R leg cramping. Pt reports that it is relieved w/ positional changes. Dr. Cadena aware and Tylenol ordered and administered.
--- NOTE | 2024-12-23 14:26 | CM ---
harmony williamson-at [facility]. her copay is $10/month
[2024-12-23] MEDS: COLACE 300 MG PO (14:38)
--- NOTE | 2024-12-23 15:50 | CM ---
spoke to pt in room, she is prev indep, lives alone in a 2 story home with 3 steps to enter. she has a cane she uses. she denies any dc planning needs. plan is for dc to home when medically stable.
[2024-12-23 19:53] VITALS: BP 109/62
[2024-12-23 23:02] VITALS: BP 127/67
[2024-12-23] MEDS: ZYRTEC 10 MG PO (23:03)
[2024-12-24] VITALS (10 sets, daily range): BP systolic 104–130; BP diastolic 49–90; BMI 28.6
--- NOTE | 2024-12-24 00:34 | PTCARENOTE ---
Rec'd pt at change of shift. Pt AAO*3, VSS, and Afib on TELE monitor. Pt with cardizem infusing as ordered. Pt aware of NPO status at midnight. Now resting with call davison in reach. See MAR and flowchart for full pt care and assessment.
[2024-12-24 03:42] LABS: Hematocrit 32.0 % (37.0-47.0); Hemoglobin 10.8 g/dL (12.0-16.0); Mean Corp Hgb Conc. 33.8 g/dL (33.0-37.0); Mean Corpuscular Volume 90.9 fL (81.0-99.0); Nucleated Red Blood Cells % 0 %; Platelet Count 126 10^3/uL (130-400); Red Cell Dist. Width 14.1 % (11.5-14.5)
[2024-12-24 04:09] LABS: ALT (SGPT) 49 U/L (0-35); AST (SGOT) 29 U/L (14-36); Albumin 3.7 g/dl (3.5-5.0); Alkaline Phosphatase 74 U/L (38-126); Blood Urea Nitrogen 34 mg/dl (7-17); Calcium 8.8 mg/dl (8.4-10.2); Carbon Dioxide 22 mmol/L (22-30); Chloride 109 mmol/L (98-107); Estimated Creatinine Clearance 32 ml/min; Glucose 111 mg/dl (70-99); Potassium 4.4 mmol/L (3.5-5.1); Sodium 138 mmol/L (135-145); Total Protein 6.0 g/dl (6.3-8.2); eGFR 53.85
[2024-12-24 04:38] LABS: Troponin I 0.052 ng/ml
[2024-12-24] MEDS: ELIQUIS 5 MG PO (07:56)
[2024-12-24] MEDS: PRAVACHOL 40 MG PO (07:56)
[2024-12-24] MEDS: PROTONIX 40 MG PO (07:56)
[2024-12-24] MEDS: MOBIC 7.5 MG PO (07:57)
[2024-12-24] MEDS: RESTASIS 0.05% OPHTHALMIC EMULSION 1 DROPS BOTH EYES (07:58)
[2024-12-24] MEDS: AVAPRO 150 MG PO (07:59)
[2024-12-24] MEDS: COLACE PO (08:00)
--- NOTE | 2024-12-24 08:43 | W.PN.HOSP.TC ---
Addendum entered and electronically signed by Krista Love MD 12/24/24 14:31:
Troponin elevation likely non-ischemic myocardial injury d/t afib
-trended to peak 0.058 since trended down
Original Note:
Today's Communication/Plan
-
discharge
Assessment / Plan
Assessment / Plan
Physical Exam
General: No acute distress, appears comfortable at this time
HEENT: NormoCephalic, Moist mucous membranes and Atraumatic
Respiratory: Clear
Cardiac: NSR; No Murmur or Rub
GI: Soft, Non Tender, Non Distended and Normal Bowel Sounds; No Organomegaly
Musculoskeletal: No Clubbing, No Cyanosis and No Edema
Skin: No Rash
Neuro: AO x 3 conversant coherent
Psych: Calm
89F HTN HLD GERD here for new onset afib rvr
#new onset atrial fib with RVR
-ECHO appreciated EF 58%, stage II diastolic dysfunction, moderate mitral valve stenosis,
-TSH wnl, mag wnl, Lipid panel wnl
-cardiology consult appreciated s/p successful GABO/Cardioversion 12/24
-Cardizem gtt transitioned to PO and hep gtt transitioned to Eliquis
-Stable for discharge home with outpatient follow up recommendations.
#anemia of chronic disease
-stable
#mild transaminitis
-resolved
#essential HTN/HLD
-irbesartan continued
-statin continued
#GERD
-PPI continued
#DVT prophylaxis
-Eliquis
#CODE status
-full code.
Total Time Preparing Discharge __40 minutes including examination of the patient, summary of the hospital stay, instructions for continuing care to all relevant caregivers; and preparation of discharge records, prescriptions, and referral
forms if necessary.
Anticipated Discharge: Today
Subjective/Interval History
-
Date of Service: December 24, 2024
No acute distress, sitting up comfortably in bed, overall reports feeling well s/p successful GABO/cardioversion. Denies new acute issues at this time. Eager to go home.
Objective Data
-
Labs:
Laboratory Results
12/24/24
03:28
WBC 5.9
Hgb 10.8 L
Hct 32.0 L
Plt Count 126 L
Sodium 138
Potassium 4.4
Chloride 109 H
Carbon Dioxide 22
BUN 34 H
Creatinine 1.0
Glucose 111 H
Calcium 8.8
Total Bilirubin 0.6
AST 29
ALT 49 H
Alkaline Phosphatase 74
Vital Signs:
Vital Signs
Temp Pulse Resp BP Pulse Ox
98.1 F 84 20 124/65 96
12/24/24 06:38 12/24/24 07:00 12/24/24 06:38 12/24/24 06:41 12/24/24 06:41
I&O
12/23/24 12/24/24 12/25/24
06:59 06:59 06:59
Intake Total 480 / 480 2039
Output Total 300 / 300 250 / 250
Balance 480 / 480 1740 / 1740 -250 / -250
--- NOTE | 2024-12-24 10:27 | W.PN.CD ---
Addendum entered and electronically signed by Shaun Wheatley MD 12/24/24 10:53:
I saw and examined the patient.
The Lead Caregiver's note was reviewed and I agree with the note.
Comment: Briefly, 89-year-old woman past medical history of aortic stenosis and mitral stenosis who presents with atrial fibrillation with rapid ventricular response
She underwent successful GABO/direct-current cardioversion earlier today and is currently maintaining sinus rhythm on review of telemetry
Add low-dose PO diltiazem 12 0mg daily for rate control
New to Eliquis 5 mg twice daily for risk reduction of cardioembolic stroke
No clear evidence of decompensated heart failure based on history or physical exam. Will not start standing Lasix dose at this time.
Stable for discharge from my perspective
Outpatient follow-up to be arranged
Original Note:
Today's Communication / Plan
-
.
Impression / Plan
-
Francoise Lopez is a 89F with a PMHx of HTN, HLD, GERD, nonrheumatic aortic stenosis, and nonrheumatic mitral stenosis who presented with palpitations x 1 week particularly with exertion, found to be in atrial fibrillation with RVR in the ED with
tiny pleural effusion on CXR, admitted and started on Heparin and Cardizem drips. Unsure if this is new-onset paroxysmal atrial fibrillation within the past week without any obvious inciting event, or if the patient has been having asymptomatic
atrial fibrillation for some time, and only recently began having symptoms. [id number] score is 4, HAS-BLED Score is 2. We were consulted for evaluation and management of atrial fibrillation. Patient elected for cardioversion and tolerated well.
PLAN
Stop Cardizem gtt
Start Diltiazem 120 mg daily
Start Eliquis 5mg BID
Okay to restart diet
S/p 1 dose lasix and euvolemic, defer decision to start Lasix for now, will discuss at outpatient visit.
Follow up in the office in 2 weeks
Physical Exam
Vital Signs/Labs
Vital Signs
Temp Pulse Resp BP Pulse Ox
98.1 F 84 20 124/65 98
12/24/24 06:38 12/24/24 07:00 12/24/24 06:38 12/24/24 06:41 12/24/24 08:00
12/23/24 12/24/24 12/25/24
06:59 06:59 06:59
Actual Weight 66.7 kg 66.4 kg
12/24/24 03:28
12/24/24 03:28
PT 15.1 Sec (11.4-14.6) H 12/22/24 16:12
INR 1.16 12/22/24 16:12
APTT Cancelled 12/23/24 12:15
Magnesium 2.0 mg/dl (1.6-2.3) 12/22/24 22:55
Triglycerides 64 mg/dl (10-149) 12/23/24 05:05
LDL Cholesterol, Calc 84 mg/dl 12/23/24 05:05
VLDL Cholesterol, Calc 12 mg/dl (0-30) 12/23/24 05:05
HDL Cholesterol 73 mg/dl 12/23/24 05:05
TSH 1.39 uIU/ml (0.47-4.68) 12/22/24 16:12
12/24/24
03:28
Bgc-V-Frldjshpuka Pept 2690
LAB Results
12/22/24 12/23/24 12/23/24
16:51 09:00 12:15
Troponin I 0.042 H* 0.058 H* Cancelled
12/24/24
03:28
Troponin I 0.052 H*
Physical Exam
Constitutional: No acute distress and Comfortable
Cardiovascular: Other (Regular rate and rhythm with occasional PACs, 2/6 KRYSTEN in the aortic area, no lower extremity edema)
Respiratory: Respiratory effort normal, Lungs clear to auscul., Wheeze Absent, Crackles Absent and Rhonchi Absent
Neuro/Psych: Alert
Data Reviewed
-
Date of Service: December 24, 2024
Medical Decision Making: Reviewed Test Results
Echo: Report Reviewed by me
Labs: Labs Reviewed by me
Total Time Spent with Patient (in minutes): 32
--- NOTE | 2024-12-24 12:21 | PTCARENOTE ---
Pt received this am in Afib, rate in the 80's to 100's. Pt returned from the GABO/CV in SB - SR, rate in the 50's to 70's. Pt denies any pain or sob. OOB to the chair for lunch. No c/o offered.
--- NOTE | 2024-12-24 14:46 | W.DCSUMMARY ---
Discharge Summary
Discharge Data
Date of Admission: 12/22/24
Date of Discharge: 12/24/24
-
Pending Results: No
Discharge Plan
-
Patient Disposition: Home (Routine Discharge)
Discharge Diagnosis/Procedures: Atrial Fibrillation with Rapid Ventricular underwent successful Cardioversion 12/24/24
Condition: Fair
Diet: Low Cholesterol and 2 Gram Sodium
Activity: As tolerated
Driving Restrictions: As prior to admission
Bathing Restrictions: None
Blood Work: Repeat CBC and CMP in 1 week of discharge. Results to be forwarded to your primary care provider and Miner Assistant. Script Provided to facilitate.
Activity Restrictions/Additional Instructions:
Follow up with primary care provider in 1 week of discharge and keep your appointment with Cardiology.
Eliquis has been prescribed for stroke risk reduction atrial fibrillation. With exception to your home Meloxicam medication, avoid further NSAID use (such as ibuprofen, aspirin, or naproxen) as additional NSAIDs may interact with Eliquis/Meloxicam
and further increase your risk of bleeding.
Cardizem has been prescribed for heart rate control- to reduce your risk recurrence of atrial fibrillation.
Please take medications as prescribed/recommended and follow up with primary care provider and/or other healthcare provider involved in your care for refills and/or further adjustment to your medication regimen as necessary.
Referrals:
Kenan Jaffe DO [Family Provider, Family Practice] - in one week
Shayla San CRNP [Specified Professional Personl, Cardiology] - 01/26/25 8:20 am
Referral Note: You have a cardiology follow-up appointment at the [place] office with Dr. Abernathy's nurse practitioner, Shayla. Please call with questions
Prescriptions:
New
diltiazem HCl 120 mg Capsule,Extended Release 24hr
120 mg PO DAILY Qty: 30 0RF
Eliquis 5 mg Tablet
5 mg PO BID Qty: 60 0RF
Continued
omeprazole 40 MG capsule,delayed release(DR/EC)
40 mg PO DAILY
acetaminophen [Tylenol Extra Strength] 500 MG tablet
500 mg PO DAILYPRN PRN (Reason: pain)
coenzyme Q10 [Co Q-10] 100 MG capsule
100 mg PO DAILY
cetirizine [Zyrtec] 10 mg Tablet
10 mg PO HS
pravastatin 40 mg tablet
40 mg PO DAILY
psyllium Packet
1 packet PO DAILYPRN PRN (Reason: constipation)
therapeutic multivitamin Tablet
1 tab PO DAILY
meloxicam 7.5 mg tablet
7.5 mg PO DAILY
cimetidine 200 mg Tablet
200 mg PO DAILYPRN PRN (Reason: heartburn)
lactase [Lactaid] 3,000 unit Tablet
3,000 unit PO AC PRN (Reason: lactose intolerance)
irbesartan 150 mg tablet
150 mg PO DAILY
simethicone 125 mg Tablet
126 mg PO DAILYPRN PRN (Reason: gas)
fluticasone propionate 50 mcg/actuation spray,suspension
2 spray INTRANASAL DAILY
docusate sodium 100 mg Tablet
300 mg PO DAILY
cyclosporine 0.05 % dropperette
1 drp BOTH EYES BID
cholecalciferol (vitamin D3) 25 mcg (1,000 unit) Tablet
25 mcg PO DAILY
camphor-menthol 0.2-3.5 % Gel
1 applic TOPICAL DAILYPRN PRN (Reason: leg cramps)
Discharge Orders:
Discharge Patient (As Directed); Ordered 12/24/24
Ordered By: Krista Love
Care Plan Goals
Care Plan Goals:
Problem: Readiness for enhanced knowledge related to diagnosis and treatment plan
Goal: Understand your diagnosis and treatment plan needs, including medications if applicable.
Instructions: Know your diagnosis, underlying causes and treatment plan options, including medications if applicable. Consult with your health care team to learn about your diagnosis and treatment plan, including medications if applicable.
Discharge Date and Time
Print Language: GREENLANDIC
--- NOTE | 2024-12-24 16:31 | PTCARENOTE ---
Pt remains in SR. Discharged to home with her daughter. Discharge instructions given and reviewed with good understanding and all questions answered.
== END 2024-12-24 17:02 | disposition home or self-care (01) | DRG 309 ==
LOC: IVU 18:10
PROVIDERS: Internal Medicine Cardiovascular Disease; Registered Nurse; ADMITTING PHYSICIAN Internal Medicine; ATTENDING PHYSICIAN Internal Medicine; EMERGENCY PHYSICIAN Emergency Medicine; FAMILY PHYSICIAN Family Medicine; OTHER PHYSICIAN Internal Medicine Cardiovascular Disease
PROC: 5A2204Z Restoration of Cardiac Rhythm, Single (ICD-10-PCS; 2024-12-24)
PROC: B246ZZ4 Ultrasonography of Right and Left Heart, Transesophageal (ICD-10-PCS; 2024-12-24)
DX: I48.91 Unspecified atrial fibrillation (principal); I5A Non-ischemic myocardial injury (non-traumatic); K59.00 Constipation, unspecified; I10 Essential (primary) hypertension; E78.00 Pure hypercholesterolemia, unspecified; K21.9 Gastro-esophageal reflux disease without esophagitis; Z96.653 Presence of artificial knee joint, bilateral; E73.9 Lactose intolerance, unspecified; D63.8 Anemia in other chronic diseases classified elsewhere; I34.2 Nonrheumatic mitral (valve) stenosis; Z82.49 Family history of ischemic heart disease and other diseases of the circulatory system; Z79.899 Other long term (current) drug therapy
CPT/HCPCS: 71046; 80053; 80061; 83735; 83880; 84443; 84484; 85025; 85610; 85730; 92960; 93005; 93306; 93312; 93320; 93325; 93971; 96365; 96366; 96367; 99291

== ENCOUNTER 2024-12-26 11:22 | Inpatient (IN) | payer MEDICARE, SELFPAY ==
[2024-12-25] VITALS (11 sets, daily range): BP systolic 123–174; BP diastolic 58–84; PULSE 70–79; BMI 27.4
[2024-12-25 08:20] LABS: Urine Character Clear (Clear)
[2024-12-25 08:27] LABS: Hematocrit 33.7 % (37.0-47.0); Hemoglobin 11.4 g/dL (12.0-16.0); Mean Corp Hgb Conc. 33.8 g/dL (33.0-37.0); Mean Corpuscular Volume 90.6 fL (81.0-99.0); Nucleated Red Blood Cells % 0 %; Platelet Count 149 10^3/uL (130-400); Red Cell Dist. Width 14.0 % (11.5-14.5)
--- NOTE | 2024-12-25 08:30 | EDRN ---
this RN was at the pts bedside assessing the pt, drawing blood work, and speaking with the pt and the pts daughter came in the room and stated, 'I'm her daughter what's going on?, this RN updated the pts daughter with the pts permission on what will
be done per the provider for the pt and the pts daughter rolled her eyes at this RN and sat down in the pts room
--- NOTE | 2024-12-25 09:00 | EDRN ---
while Ish DAMIAN and this RN were at the pts bedside the pt had a run of Aflutter in the 160's, Aflutter broke on it's own and the pts HR went back down to the 60-70's in sinus arrhythmia
--- NOTE | 2024-12-25 09:15 | EDRN ---
the pt pressed the call davison and immediately after the pts daughter came up to this RN at the nurses station and stated, 'My mother has to use the bathroom now thanks and she really doesn't feel good so i need a doctor to see her', this RN got up
and walked into the pts room and unhooked the pt with Ish DAMIAN's permission and she was able to ambulate to the bathroom with no issues
--- NOTE | 2024-12-25 09:38 | EDRN ---
the pt pressed the call davison and this RN entered the pts room, the pt stated that she needed to use the bathroom, the pt ambulated to the bathroom independently with no issues
--- NOTE | 2024-12-25 10:30 | ED.GENMED ---
History of Present Illness
<Ish Tenorio PA-C - Last Filed: 12/25/24 14:28>
General
Chief Complaint: Weakness
Source: patient, records and family
Time Seen by Provider: 12/25/24 08:44
History of Present Illness
History of Present Illness:
89-year-old female with past medical history of atrial fibrillation, hypertension, hyperlipidemia presenting to the emergency department via EMS from home where patient states she did not feel her usual self this morning, felt somewhat disoriented,
lightheaded and generally unwell although noting now she feels to be somewhat back to her usual self. Patient was recent at this facility for the last 3 days, discharged yesterday with a diagnosis of new onset atrial fibrillation and had been
cardioverted. She reports being started on Eliquis and another medication that she cannot think of, notes that she took both of these medications last night as prescribed. Patient states that when she woke up around 7 AM this morning she went to
go get out of bed and felt as if she did not know where she was and was trying to get to the bathroom, stumbled and struck the door frame but states she did not fall. Currently denying any headaches, visual changes, focal weakness or numbness,
chest pain or shortness of breath or abdominal pain. Daughter states that the patient called her and seemed confused and patient did not know how to dial 911 so the daughter had to do this for her. Daughter states patient still seems to be a
little bit slow cognitively.
Past History
<Ish Tenorio PA-C - Last Filed: 12/25/24 14:28>
Past History
ED Past Medical History: Arrthythmia, GERD, HTN, Hypercholesterolemia and Other (Arthritis)
ED Past Surgical History: Gynecological, Orthopedic, Tonsilectomy and Other
Social History
Tobacco: Non-smoker
Alcohol: Occasional
Drug: None
Personal:
Living: alone
Review of Systems
<Ish Tenorio PA-C - Last Filed: 12/25/24 14:28>
Review of Systems
All Other Systems: ROS reviewed and negative except as documented in HPI and ROS
Phy Exam
<Ish Tenorio PA-C - Last Filed: 12/25/24 14:28>
Physical Exam
Physical Exam:
GENERAL: Alert , in no apparent distress, able to ambulate on her own without difficulty and steadily
EYE: clear conjunctiva b/l
HEAD: NCAT
ENT: o/p clr, mmm.
CARDIAC: Regular rate and rhythm .
LUNGS: Clear breath sounds bilaterally, no acute respiratory distress, no wheezes/rales/rhonchi
ABDOMEN: Soft, without focal tenderness, no r/g, no cvat, negative Sanford sign, no tenderness at McBurney's point
NEUROLOGICAL: Alert and oriented x 3, answers questions appropriately
SKIN: Warm and dry, skin intact.
MUSCULOSKELETAL: No edema, well perfused.
PSYCH: Normal and appropriate interaction.
Scores
<JAUN Fatima Last Filed: 12/25/24 14:28>
Heart Failure Risk
Heart Failure Risk Score: Not Applicable
Heart Score for Chest Pain Patients
STEMI patient?: Not applicable
Withdrawal Assessment of Alcohol
Withdrawal Assessment Completed?: Not applicable
Course
<Ish Tenorio PA-C - Last Filed: 12/25/24 14:28>
Orders/Labs/Results
Orders:
Orders
12/25/24 07:55
Lidocaine HCl/Pf [Xylocaine-Mpf 1% Vial] 50 mg .ROUTE .STK-MED ONE
12/25/24 07:58
Electrocardiogram (*1) Urgent
Reason for Study: Fatigue / Weakness
12/25/24 07:59
EKG- Treatment ONCE
12/25/24 08:03
Complete Blood Count/With Diff Urgent
Urinalysis Reflex To Culture Urgent
Date Specimen was Collected: 12/25/24
Time Specimen was Collected: 07:59
12/25/24 09:17
CT Head W/o Iv Contrast Urgent
Comment:
Reason For Exam: confusion, recently started on DOAC
12/25/24 11:37
Comprehensive Metabolic Panel Urgent
12/25/24 13:01
Admit/Transfer Patient As Directed
Co-Sign Provider:
Level of Care: Observation services
Assign to:: Telemetry
Physician / Group: Krista Love
Diagnosis: TIA vs CVA
Reason for Telemetry: Arrhythmia
Date to Stop Telemetry: 12/28/24
Time to Stop Telemetry: 11:00
PRN Pain Medication Management As Directed
May give lesser potent ordered pain med per pt: Yes
preference::
Protocol:: Medication orders for pain may be administered in a
manner that supports deferring to patient preference
when the pt is:
- Requesting an ordered lesser potent pain medication.
Least to most potent pain medications are defined
as: acetaminophen < NSAID < tramadol < opioids
(morphine, oxycodone, hydromorphone).
- Requesting a lesser dose of the same medication IF
ORDERED.
- Requesting a less intrusive route of administration
if both routes are prescribed by the provider (PO <
IV).
12/25/24 13:06
Code Status As Directed
Resuscitation Status: Do not resuscitate
Reached after discussion with pt or family/Healthcare POA: Yes
DNR Bracelet Application ONCE
12/28/24 11:00
DC Protocol for Telemetry ONCE
Abnormal Lab Results
12/25/24 12/25/24
08:03 11:37
RBC 3.72 L 10^6/uL
(4.20-5.40)
Hgb 11.4 L g/dL
(12.0-16.0)
Hct 33.7 L %
(37.0-47.0)
MPV 11.6 H fL
(7.4-10.4)
Chloride 110 H mmol/L
(98-107)
Carbon Dioxide 21 L mmol/L
(22-30)
BUN 28 H mg/dl
(7-17)
Glucose 114 H mg/dl
(70-99)
ALT 43 H U/L
(0-35)
12/25/24 08:03
12/25/24 11:37
Vital Signs
Initial and Last Documented VS:
Initial Vital Signs
BP
171/67
12/25/24 08:02
Last Documented Vital Signs
Temp Pulse Resp BP Pulse Ox
98.5 F 74 16 171/76 97
12/25/24 08:23 12/25/24 08:23 12/25/24 08:23 12/25/24 08:23 12/25/24 10:31
Gordylt;Jordan Kraus, DO - Last Filed: 12/25/24 12:38>
Orders/Labs/Results
Orders:
Orders
12/25/24 07:55
Lidocaine HCl/Pf [Xylocaine-Mpf 1% Vial] 50 mg .ROUTE .STK-MED ONE
12/25/24 07:58
Electrocardiogram (*1) Urgent
Reason for Study: Fatigue / Weakness
12/25/24 07:59
EKG- Treatment ONCE
12/25/24 08:03
Complete Blood Count/With Diff Urgent
Urinalysis Reflex To Culture Urgent
Date Specimen was Collected: 12/25/24
Time Specimen was Collected: 07:59
12/25/24 09:17
CT Head W/o Iv Contrast Urgent
Comment:
Reason For Exam: confusion, recently started on DOAC
12/25/24 11:37
Comprehensive Metabolic Panel Urgent
12/25/24 13:01
Admit/Transfer Patient As Directed
Co-Sign Provider:
Level of Care: Observation services
Assign to:: Telemetry
Physician / Group: Krista Love
Diagnosis: TIA vs CVA
Reason for Telemetry: Arrhythmia
Date to Stop Telemetry: 12/28/24
Time to Stop Telemetry: 11:00
PRN Pain Medication Management As Directed
May give lesser potent ordered pain med per pt: Yes
preference::
Protocol:: Medication orders for pain may be administered in a
manner that supports deferring to patient preference
when the pt is:
- Requesting an ordered lesser potent pain medication.
Least to most potent pain medications are defined
as: acetaminophen < NSAID < tramadol < opioids
(morphine, oxycodone, hydromorphone).
- Requesting a lesser dose of the same medication IF
ORDERED.
- Requesting a less intrusive route of administration
if both routes are prescribed by the provider (PO <
IV).
12/25/24 13:06
Code Status As Directed
Resuscitation Status: Do not resuscitate
Reached after discussion with pt or family/Healthcare POA: Yes
DNR Bracelet Application ONCE
12/28/24 11:00
DC Protocol for Telemetry ONCE
Abnormal Lab Results
12/25/24 12/25/24
08:03 11:37
RBC 3.72 L 10^6/uL
(4.20-5.40)
Hgb 11.4 L g/dL
(12.0-16.0)
Hct 33.7 L %
(37.0-47.0)
MPV 11.6 H fL
(7.4-10.4)
Chloride 110 H mmol/L
(98-107)
Carbon Dioxide 21 L mmol/L
(22-30)
BUN 28 H mg/dl
(7-17)
Glucose 114 H mg/dl
(70-99)
ALT 43 H U/L
(0-35)
12/25/24 08:03
12/25/24 11:37
Vital Signs
Initial and Last Documented VS:
Initial Vital Signs
BP
171/67
12/25/24 08:02
Last Documented Vital Signs
Temp Pulse Resp BP Pulse Ox
98.5 F 74 16 171/76 97
12/25/24 08:23 12/25/24 08:23 12/25/24 08:23 12/25/24 08:23 12/25/24 10:31
<Ish Tenorio PA-C - Last Filed: 12/25/24 14:28>
MDM/Problems Addressed
Differential Diagnosis Includes:
Hospital induced delirium
Medication side effects
CVA/TIA
UTI
Anemia
Electrolyte Imbalance
Cardiac Arrhythmia
MDM/Problems Addressed:
89-year-old female presenting to the emergency department for evaluation of reported confusion/change in mental status. Recent admission here for new onset atrial fibrillation. Patient was cardioverted while here, discharged home on anticoagulants
and what appears to be Cardizem 120 mg daily. At time of my exam patient appears to be at her baseline, answering questions appropriately, was able to ambulate unassisted. Vital signs within normal limits. During my exam patient did have a brief
episode of a tacky arrhythmia, question atrial flutter with symptoms resolving and going back to a rate controlled normal sinus rhythm within 5 to 10 seconds. If the patient's symptoms were related to any acute neurological issue patient is already
anticoagulated and would not have any changes to her medications. Will obtain head CT given the reported stumble this morning as well as her change in mental status with being placed on a new anticoagulant. Patient is scheduled to move to [facility]
assisted living in the next few weeks, currently lives on her own. I did offer case management consult for possible visiting nurses if patient is able to go home.
Chronic conditions affecting care: Arrhythmia
<Ish Tenorio PA-C - Last Filed: 12/25/24 14:28>
*Pulse Oximetry
SaO2: 97
Oxygen Mode of Delivery: Room air
Patient hypoxic: no
*EKG
Heart Rate: 75
Rate: normal
Rhythm: sinus
Ischemia: no ischemia
*Show Host Interpretation
Rate: normal
Heart Rate: 76
Rhythm: sinus
*Critical Care Note
Total Time (30-74mins, 75-104mins- exclusive of procedures): Not Applicable
Data Reviewed
Review of Other/Old Records Reveals: Labs, Records and Discharge Summary
<Ish Tenorio PA-C - Last Filed: 12/25/24 14:28>
Patient Management
Discussion with other providers: Hospitalist
Escalation/DeEscalation of care consider admission/obs:
Patient's workup here is relatively unremarkable. Patient's daughter continues to express concern about this change in mental status and brief confusion. Given her age combined with the fact patient lives on her own in a multistory house we felt
it would be best that patient be readmitted for continued observation of this change in mental status. Question potential need for MRI as it is possible patient did have a subacute stroke given her newly diagnosed A-fib. Hospitalist team is aware
and accepts for continued evaluation and treatment.
ED Attending Note
<Ish Tenorio PA-C - Last Filed: 12/25/24 14:28>
-
Portions of this chart may have been created with voice recognition software.� Occasional wrong word or��sound alike� substitutions may have occurred due to the inherent limitations of voice recognition software.
<Jordan Kraus, DO - Last Filed: 12/25/24 12:38>
ED Attending Note
Patient seen and examined by attending physician: Yes
I performed the substantive portion of visit, reviewed & personally made and approve the management plan that is documented in note by myself or HAYLEY.: Yes
ED Attending Note:
I evaluated patient at bedside. Relatively unremarkable ED workup. However daughter is certain that this is a rather significant change in her mental status. The patient is on Eliquis for A-fib. She is not on any antiplatelets. When I asked the
patient to explain what is been going on recently she had trouble communicating and recalling recent events. Daughter states this is very abnormal for her. She does not feel comfortable with the idea of her being discharged without a more clear
plan. We have asked hospitalist to keep in the hospital again for more of an evaluation.
Discharge Plan
Departure
Patient Disposition: Admit
Date of Disposition: 12/25/24
Time of Disposition: 12:12
Presentation/result/management discussed w/ accepting MD/DO: Hospitalist
Discharge Problem:
Altered mental status
Interventions
Interventions:
*Risk Screen - Suicide Last Done: 12/25/24 08:23
*General Assessment Last Done: 12/25/24 08:23
*Neglect/Abuse Screening Last Done: 12/25/24 08:23
*ED- Fall Risk Assessment Last Done: 12/25/24 08:23
*ED COVID-19 Vaccine History Last Done: 12/25/24 08:23
*Nursing Disposition Last Done: 12/25/24 14:05
ED- Cardiac Assessment Last Done: 12/25/24 08:23
ED- Neurological Assessment Last Done: 12/25/24 08:23
ED- Pulmonary Assessment Last Done: 12/25/24 08:23
--- NOTE | 2024-12-25 11:56 | EDRN ---
the pts daughter approached this RN at the nurses station and stated to this RN, 'My mom needs help she's having another weird symptoms and she's having really bad acid reflux and she never has this and she appears to be in distress' this RN got up
from this RN's chair and the pts daughter roled her eyes at this RN, this RN entered the pts room and the pt is laying in stretcher in the lowest position, side rails up x2, HOB elevated, the pt did not appear to be in distress, the pts Sp02 was
98%, no c/o chest pain, no c/o SOB, this RN asked if the pt wanted to be moved up in bed more so that her head could be higher when sitting up and the pt said no, the pts daughter stated to this RN, 'I just feel like we have been here forever and
nothing has been done for her, she has all these weird symptoms like dry mouth and urinary frequency and she just doesn't feel good is she going to see a doctor?', this RN notified Ish DAMIAN and Dr. Kraus who is currently at the
pts bedside
[2024-12-25 12:07] LABS: ALT (SGPT) 43 U/L (0-35); AST (SGOT) 31 U/L (14-36); Albumin 4.7 g/dl (3.5-5.0); Alkaline Phosphatase 93 U/L (38-126); Blood Urea Nitrogen 28 mg/dl (7-17); Calcium 10.0 mg/dl (8.4-10.2); Carbon Dioxide 21 mmol/L (22-30); Chloride 110 mmol/L (98-107); Estimated Creatinine Clearance 41 ml/min; Glucose 114 mg/dl (70-99); Potassium 4.6 mmol/L (3.5-5.1); Sodium 142 mmol/L (135-145); Total Protein 7.8 g/dl (6.3-8.2); eGFR > 60.00
--- NOTE | 2024-12-25 12:10 | EDRN ---
Ish DAMIAN currently at the pts bedside
--- NOTE | 2024-12-25 12:20 | HPS.HSE ---
Family Physician
-
Family Physician: Kenan Jaffe
Chief Complaint
-
AMS
History of Present Illness
89F paroxysmal afib HTN HLD GERD from home w AMS. Patient was recently here for afib rvr, underwent successful GABO/cardioversion and was discharged day prior. Patient and daughter confirm that she was well last night following return to home.
Morning follow, however, patient felt unwell, not her usual self, felt confused and lightheaded. She did not know where she was and had trouble getting to her bathroom from her bed. Patient called daughter, not knowing how to call 911, prompting
daughter to call for her. ED evaluation largely unremarkable, CT head neg. Patient's last medication she took was Eliquis from night prior, did not take her morning meds. Symptoms largely improved during ED evaluation, daughter notes some memory
issues persist, patient asking repetitive questions, not normal for her. Patient hypertensive but otherwise vitals signs stable on room air.
Medical History
Past Medical History
Past Medical History: Reports Other (as above)
Past Surgical History: Reports Other (as above)
Social History
Tobacco: Non-smoker
Alcohol: Occasional
Drug: None
Personal:
Living: Alone
Employment: Retired
Family History
Family History: Not pertinent (reviewed)
Allergies / Home Medications
Allergies reflects when Allergies were last updated in [employer].
Home Medications with original date entered in [employer]
Allergy/Medication List:
Allergies
Allergy/AdvReac Type Severity Reaction Status Date / Time
No Known Drug Allergies Allergy - Verified 01/18/14 11:22
seasonal Allergy congestion Uncoded 01/18/14 11:22
Home Medications
acetaminophen 500 mg tablet (Tylenol Extra Strength) 500 mg PO DAILYPRN PRN mild pain 10/02/11
coenzyme Q10 100 mg capsule (Co Q-10) 100 mg PO DAILY Supplement 10/02/11
omeprazole 40 mg capsule,delayed release 40 mg PO DAILY Gastrointestinal Issue 10/02/11
camphor-menthol 0.2 %-3.5 % topical gel 1 applic topical DAILYPRN PRN leg cramps 12/22/24
cetirizine 10 mg tablet (Zyrtec) 10 mg PO HS Supplement 12/22/24
cholecalciferol (vitamin D3) 25 mcg (1,000 unit) tablet 25 mcg PO DAILY Supplement 12/22/24
cimetidine 200 mg tablet 200 mg PO DAILYPRN PRN heartburn 12/22/24
cyclosporine 0.05 % eye drops in a dropperette 1 drp BOTH EYES BID Eye Condition 12/22/24
docusate sodium 100 mg tablet 300 mg PO DAILY Gastrointestinal Issue 12/22/24
fluticasone propionate 50 mcg/actuation nasal spray,suspension 2 spray intranasal DAILY Allergies 12/22/24
irbesartan 150 mg tablet 150 mg PO DAILY Blood Pressure 12/22/24
lactase 3,000 unit tablet (Lactaid) 3,000 unit PO TIDPRN PRN lactose intolerance 12/22/24
meloxicam 7.5 mg tablet 7.5 mg PO DAILY Pain 12/22/24
pravastatin 40 mg tablet 40 mg PO DAILY High Cholesterol 12/22/24
psyllium 1 packet PO DAILYPRN PRN constipation 12/22/24
simethicone 125 mg tablet 126 mg PO DAILYPRN PRN gas 12/22/24
therapeutic multivitamin 1 tab PO DAILY Supplement 12/22/24
apixaban 5 mg tablet (Eliquis) 5 mg PO BID #60 tabs 12/24/24
diltiazem HCl 120 mg capsule,extended release 24 hr 120 mg PO DAILY #30 caps 12/24/24
Review of Systems
-
A 12 point ROS was completed and negative except as noted: Yes
Constitutional: Reports Other (as below)
Physical Exam
Vital Signs
Vital Signs
Temp Pulse Resp BP Pulse Ox
98.5 F 74 16 171/76 97
12/25/24 08:23 12/25/24 08:23 12/25/24 08:23 12/25/24 08:23 12/25/24 10:31
Physical Exam
General: Other (as below)
Laboratory Results
-
12/25/24 08:03
12/25/24 11:37
Laboratory Results
Total Bilirubin 0.8 mg/dl (0.2-1.3) 12/25/24 11:37
AST 31 U/L (14-36) 12/25/24 11:37
ALT 43 U/L (0-35) H 12/25/24 11:37
Alkaline Phosphatase 93 U/L (38-126) 12/25/24 11:37
Impression/Plan
-
ROS
General: Denies fever chills night sweats unexpected weight loss
Neuro: Denies seizure shaking loss of consciousness dizziness vertigo
Psych: denies depression hallucinations confusion manic episodes
Endocrine: Denies polyuria polydipsia polyphagia heat/cold intolerance
HEENT: Denies blindness visual disturbances epistaxis
Pulmonary: denies coughing hemoptysis sneezing sob dyspnea on exertion
Cardiovascular: denies chest pain palpitations leg swelling
Hematology: denies signs symptoms of anemia easy bruising/bleeding
Gastrointestinal: denies nausea vomiting diarrhea constipation hematemesis hematochezia melena
Genito-Urinary: denies retention incontinence dysuria reports urinary frequency
Musculoskeletal: reports joint pain denies weakness
Dermatology: denies rash laceration bruising
Physical Exam
General: No pallor, cyanosis, or jaundice.
HEENT: Throat clear. PERRLA Normocephalic atraumatic
NECK: Supple. No JVD Carotid Bruits
RESPIRATORY: Lungs clear to auscultation. No crackles wheezes stridor
CVS: S1, S2 normal. RRR. No murmur, rub or gallop.
ABDOMEN: Soft, non-tender. No distension. BS+/normal.
EXTREMITIES: No peripheral cyanosis or edema.
REGULATORY AGENCY DIRECTOR: AOx3 Conversant Coherent some memory issues word finding difficulties noted strength 5/5 all ext's Immediate and Delayed Recall intact
IMPRESSION:
89F paroxysmal afib HTN HLD GERD from home w AMS. Patient was recently here for afib rvr, underwent successful GABO/cardioversion and was discharged day prior current presentation. Patient and daughter confirm that she was well last night following
return to home. Morning follow, however, patient felt unwell, not her usual self, felt confused and lightheaded. She did not know where she was and had trouble getting to her bathroom from her bed. Patient called daughter, not knowing how to call
911, prompting daughter to call for her. ED evaluation largely unremarkable, CT head neg. Patient's last medication she took was Eliquis from night prior, did not take her morning meds. Symptoms largely improved during ED evaluation, daughter
notes some memory issues persist, patient asking repetitive questions, not normal for her. Hypertensive but otherwise vitals signs stable on room air.
PLAN:
#acute metabolic encephalopathy unclear etiology, suspect TIA vs CVA
CT Head appreciated no acute abn's
check brain MRI
neurochecks
Speech and Swallow eval
Physical Therapy
Permissive HTN <220/120
ECHO recently done, no need to repeat
Fall precautions
Check Orthostatic Vitals
#Recent Hx Afib RVR s/p successful GABO/Cardioverion 12/24
-Cont Eliquis and Cardizem with holding parameters
#anemia of chronic disease
monitor
#essential HTN/HLD
-hold irbesartan for now, cont Cardizem w/ holding parameters
-statin continued
#GERD
-PPI continued
#DVT prophylaxis
-Eliquis
#CODE status
-full code.
Discussed with patient and patient's daughter Dara
I spent a total of 77 minutes with the patient or on the floor. More than 50% of this time involved counseling and coordination of care.
--- NOTE | 2024-12-25 12:37 | EDRN ---
the pts pressed the call davison and immediately after the pts daughter approached this RN at the nurses station and stated that her mother needed to use the bathroom, this RN entered the pts room and started to removed the panel monitor and BP cuff
and Sp02 monitor and the pts daughter while watching stated to this RN, 'I mean don't strangle her with the wires or anything', this RN stated to the pts daughter that her choice of words was inappropriate and that this RN would do no such thing,
the pts daughter then stated, 'Well i mean there's wires on her chest that could wrap around her neck', this RN stated that this RN understood that however nothing is 'around' the pts neck', the pt was able to ambulate to the bathroom with no
issues, will continue to monitor the pt closely
--- NOTE | 2024-12-25 12:39 | EDRN ---
hospitalist currently at the pts bedside
--- NOTE | 2024-12-25 12:48 | EDRN ---
case management currently at the pts bedside
--- NOTE | 2024-12-25 13:16 | CM ---
Addendum entered by Neris Bravo 12/25/24 13:29:
SAHU letter explained; form signed @ [id number]
Original Note:
Met with patient and her daughter, Glory, at the bedside in the ED
Pharmacy verified: [facility] @ [address] [place] [address]
Lives alone; multilevel home; 3 steps to enter; 12 steps between floors; railings present on stairs; half bath on 1st floor; 2nd floor bath has walk-in shower
PLOF: patient reported she is independent stairs and ADLs; recent SOB climbing stairs; ambulates w/ a cane when she goes out of the house only
NO SNF or recent Home Health utilization history
Daughter will provide transport home
Plan: Anticipate discharge to home when medically stable; Case Management will monitor for discharge needs/services
--- NOTE | 2024-12-25 14:06 | EDRN ---
this RN called the receiving unit and notified them that paper report was going to be tubed up
--- NOTE | 2024-12-25 16:10 | PTCARENOTE ---
Received pt from ER via stretcher, accompanied by ER staff. Pt AAO x3, forgetful; anxious. ESTEBAN well, able to ambulate to bed with minimal assistance; denies weakness/dizziness, but sl unsteady with ambulation. Fall prec initiated. NIHSS 1- pt c/o
slight decreased sensation RT arm/Rt foot. VSS. Placed on telemetry:NSR. On room a ir- pulse ox 97%, no SOB noted. Abd soft, rounded, passed swallow eval; to start chol lowering/2 Gm Na diet. Pt DTV; states will void in BR; instructed to call
for assistance w/OOB activty. Afebrile; skin W/D/I. Oriented to 4 East, currently resting in bed, no c/o. Daughter at bedside. Will continue to monitor.
[2024-12-25] MEDS: RESTASIS 0.05% OPHTHALMIC EMULSION 1 DROPS BOTH EYES (20:46)
[2024-12-25] MEDS: ELIQUIS 5 MG PO (20:46)
[2024-12-26] VITALS (13 sets, daily range): BP systolic 121–173; BP diastolic 45–68; PULSE 64–72; O2SAT 98
[2024-12-26 07:03] LABS: Hematocrit 31.6 % (37.0-47.0); Hemoglobin 10.7 g/dL (12.0-16.0); Mean Corp Hgb Conc. 33.9 g/dL (33.0-37.0); Mean Corpuscular Volume 91.9 fL (81.0-99.0); Platelet Count 150 10^3/uL (130-400); Red Cell Dist. Width 14.0 % (11.5-14.5)
[2024-12-26 07:50] LABS: Blood Urea Nitrogen 21 mg/dl (7-17); Calcium 9.1 mg/dl (8.4-10.2); Carbon Dioxide 24 mmol/L (22-30); Chloride 110 mmol/L (98-107); Estimated Creatinine Clearance 41 ml/min; Glucose 104 mg/dl (70-99); HDL Cholesterol 71 mg/dl; LDL Cholesterol, Calculated 101 mg/dl; Magnesium 1.9 mg/dl (1.6-2.3); Potassium 4.5 mmol/L (3.5-5.1); Sodium 140 mmol/L (135-145); Very Low Density Lipoprotein 13 mg/dl (0-30); eGFR > 60.00
--- NOTE | 2024-12-26 08:30 | PTOTSP ---
Speech Language Pathology
Pt seen for speech/language evaluation via the Quick Aphasia Battery (QAB), form 1. Pt with an overall score of 9.82, indicative of skills WNL. Pt scored WNL on all subtests. No dysarthria noted, but lingual deviation to the R noted.
Hyponasality noted, but she reported this was baseline from chronic sinusitis. She also reported vision changes in R eye. Cognition not formally assessed this visit, but some conflicting statements and repetition noted.
Pt also seen for clinical bedside swallow evaluation. P.O. trials of regular solids and thin liquids provided. Adequate mastication, bolus formation, and A-P transit noted with no oral residue. No overt signs of aspiration.
Recommend:
(1) Regular solids/thin liquids
(2) General aspiration precautions
(3) Meds as tolerated
(4) PREFORMS LAMINATOR to continue to follow for cognitive tx
[2024-12-26] MEDS: PRAVACHOL 40 MG PO (09:26)
[2024-12-26] MEDS: PROTONIX 40 MG PO (09:26)
[2024-12-26] MEDS: CARDIZEM CD 120 MG PO (09:26)
[2024-12-26] MEDS: ELIQUIS 5 MG PO ×2 (09:26→19:47)
[2024-12-26] MEDS: VITAMIN D3 (cholecalciferol) 25 MCG PO (09:27)
[2024-12-26] MEDS: THERAGRAN 1 TABLET PO (09:27)
[2024-12-26] MEDS: RESTASIS 0.05% OPHTHALMIC EMULSION 1 DROPS BOTH EYES ×2 (09:27→19:47)
--- NOTE | 2024-12-26 12:17 | CON.NEURO4 ---
Addendum entered and electronically signed by Leonard Perez MD 12/26/24 14:20:
Studies reviewed.
I have personally examined the patient. I reviewed and agree with the POTATO SEED CUTTER's Note.
My addenda:
Awake, alert, interactive. No acute distress.
Speech intact.
Follows 2-step requests w/o difficulty. No tremor.
Extra-ocular movements grossly intact.
Facial movements full and symmetric. Hearing intact to normal conversational volume.
Normal UE movements bilaterally.
Neck: full ROM.
Chest: no dyspnea
Heart: no JVD
Ext: (-) Clubbing, (-) Cyanosis, (-) Edema
IMPRESSIONS/RECOMMENDATIONS:
Abrupt onset of change in mental status following newly diagnosed and treated atrial fibrillation. Patient received cardioversion but returned with confusion which is not resolved entirely as it is a recurrent as a lack of recall
Would continue the patient's usual apixaban which was initiated on 12/24/2024 despite medium sized stroke based on most recent information suggesting against hemorrhagic conversion and more likely that the patient may experience an acute ischemic
worsening without continued anticoagulation therapy
Advance the patient's cholesterol-lowering agent from outpatient use of pravastatin 40 mg to the use of atorvastatin 80 mg despite the patient's advanced age
Check blood work for potential metabolic abnormalities producing symptoms
Rehabilitation evaluations and treatment
Goal of normotension
Goal of normoglycemia
Patient was instructed not expect to return to driving especially based on her right homonymous hemianopsia
D/W patient / family
All questions answered.
Will continue to follow patient.
Original Note:
Documented by User: Renu Rea NP 12/26/24 13:49
Consultation - Neurology 4
-
CONSULTING PHYSICIAN: Leonard Perez MD
REFERRING PHYSICIAN: Hospitalists/Dr. Love
DICTATED BY: CARMELA Cohen
DATE/TIME OF REQUEST: 12/26/24
DATE/TIME OF CONSULTATION: 12/26/24
Reason for Consultation: Change in mental status
History of Present Illness:
This is an 89-year-old right-handed female who has presented to the hospital on 12/25/24 with report of confusion. Patient was recently hospitalized here from 12/22/24-12/24/24 with newly diagnosed Afib with RVR. She underwent GABO and cardioversion on
12/24/24 was started on apixaban for stroke prevention during admission. She was in her usual state at home until she woke up yesterday (12/25/24) and reports feeling not like her self, lightheaded, and per her daughter, confused, prompting them to
return to the ER for evaluation. On arrival in the ER, she was feeling improved but her daughter noted ongoing confusion which is abnormal for the patient. CT head was obtained on arrival and was negative for any acute abnormalities. She was not a
candidate for TNK/IAT due to use of apixaban in the past 12 hours and NIHSS <6. Today (12/26/24), patient reports feeling at her baseline but her daughter at bedside notes that she is repeating herself and confused. She denies any headache, dizziness,
vision changes, speech/swallow difficulty, numbness, and weakness. At baseline she lives alone, still drives, is independent with ADLs, and has no concerns about memory.
Past Medical History: Newly diagnosed Afib (apixaban), HTN, HLD, GERD, DJD
Surgical History: Left hand skin cancer removal, MOHS face, knee replacement, b/l cataract removal, b/l carpal tunnel release, L TSR, L L4-5 ILESI
Family History: Reviewed and noncontributory.
Social History: Denies tobacco and illicit drug use. Occasional alcohol.
Allergies: Pollen extracts.
Home Medications: See below.
Review of Symptoms:
Patient denies any fever, headache, chest pain, shortness of breath, GI or symptoms.
�Per the HPI.�All systems are reviewed negative except above.
Physical Exam:
The patient is afebrile, abdomen is nondistended, breathing is unlabored, skin is warm and dry, no edema.
NIH Stroke Scale:
I performed the NIH stroke scale on the patient on 12/26/24 at 1220. The patient scored 2 points on the NIH stroke scale assessment, which were assigned as follows: See below.
Neurologic Examination:
The patient is awake, alert and oriented x 3, poor historian/forgetful, conversation is confused. States correct recent/next holiday order. She is able to follow commands and answer questions appropriately. There is no aphasia or dysarthria. On
cranial nerve assessment, pupils are 3 mm bilateral, round and reactive to light and accommodation. Visual velasquez in the left are are absent on the right side, in the left eye there is a small right-sided field cut. Extraocular movements are intact.
Facial sensations are intact and bilaterally symmetrical, there is no facial asymmetry. Hearing is intact bilaterally to normal conversation volume. Tongue palate and uvula are midline. Sternocleidomastoid strengths are full bilaterally. Motor
strengths are 5/5 bilateral upper and lower extremities on medical research [place] scale. There is no drift or involuntary movement noted. Deep tendon reflexes are 2+ bilateral upper and lower extremities and Babinski is absent bilaterally. There
was no extinction noted on double simultaneous stimulation. Coordination is intact by finger to nose bilaterally.
Lab Results: See below.
Neuro Imaging:
1. CT Head 12/25/24: No acute intracranial abnormalities. Findings again seen compatible with diffuse cortical atrophy with nonspecific white matter changes as described above.
2. MRI Brain 12/26/24: Large nonhemorrhagic acute/subacute left occipital lobe infarct. Additional smaller nonhemorrhagic left thalamic infarct. Questionable additional tiny punctate acute/subacute infarct in the high left frontoparietal lobe.
Differentials for the patient's presentation include:
1. Large acute/subacute left occipital lobe, smaller left thalamic, and tiny left frontoparietal lobe ischemic stroke; etiology is likely embolic given stroke appearance and recent diagnosis of Afib.
2. New diagnosis Afib.
Patient has the following risk factors for their symptoms: New Afib, HTN, HLD, age
IV Tenecteplase/IAT candidacy: Not a candidate due to use of apixaban in the past
Recommendations:
-Continue apixaban.
-CTA head/neck pending.
-Goal normotension.
-Goal normoglycemia, hbA1c is pending.
-LDL goal <70. LDL is 101. Would change home pravastatin 40mg to atorvastatin 80mg daily.
-NIHSS and neurological checks per unit guidelines.
-Patient/family provided with a stroke education packet.
-PT/OT/ST
-No driving. Will need visual field testing per Ophthalmology and OT driving screening prior to resuming driving.
Discussed patient care with: Dr. Perez, the patient, patient's daughter
Vital Signs and Labs
-
Vital Signs and Labs:
Vital Signs
Temp Pulse Resp BP Pulse Ox
98.1 F 70 16 135/61 99
12/26/24 11:00 12/26/24 11:00 12/26/24 11:00 12/26/24 11:00 12/26/24 11:00
Lab Results
12/26/24 06:23
12/26/24 06:23
Sodium 140 mmol/L (135-145) 12/26/24 06:23
Potassium 4.5 mmol/L (3.5-5.1) 12/26/24 06:23
BUN 21 mg/dl (7-17) H 12/26/24 06:23
Glucose 104 mg/dl (70-99) H 12/26/24 06:23
Calcium 9.1 mg/dl (8.4-10.2) 12/26/24 06:23
LDL Cholesterol, Calc 101 mg/dl 12/26/24 06:23
Medications
-
Active Medications
Generic Name Dose Route Start Last Admin
Trade Name Freq PRN Reason Stop Dose Admin
Acetaminophen 650 mg 12/25/24 14:54
Acetaminophen 325 Mg Tablet PO 01/22/25 14:53
Q4HPRN PRN
CHAMPAGNE, mild pain, or temp >100.4F
Apixaban 5 mg 12/25/24 20:00 12/26/24 09:26
Apixaban (Eliquis) 5 Mg Tablet PO 01/22/25 19:59 5 mg
BID DULCE Administration
Cetirizine HCl 10 mg 12/25/24 22:00
Cetirizine Hcl 10 Mg Tablet PO 01/22/25 21:59
On Hold: 12/25/24 22:00 HS DULCE
Cholecalciferol 25 mcg 12/26/24 08:00 12/26/24 09:27
Cholecalciferol (Vitamin D3) 25 Mcg Tablet (1,000 Units) PO 01/23/25 07:59 25 mcg
DAILY DULCE Administration
Cyclosporine 1 drops 12/25/24 20:00 12/26/24 09:27
Cyclosporine 0.05% (Ophthalmic Emulsion) 10 Drop Droperette BOTH EYES 01/22/25 19:59 1 drops
BID DULCE Administration
Diltiazem HCl 120 mg 12/26/24 08:00 12/26/24 09:26
Diltiazem 120 Mg Extended Release (24 H) Capsule PO 01/23/25 07:59 120 mg
DAILY DULCE Administration
Hydralazine HCl 5 mg 12/25/24 14:54
Hydralazine 20 Mg/Ml Vial IV 01/22/25 14:53
Q4HPRN PRN
SBP>220 or DBP>120
Metoprolol Tartrate 5 mg 12/25/24 14:54
Metoprolol 5 Mg/5 Ml Vial IV 01/22/25 14:53
Q4HPRN PRN
persistent HR>120
Multivitamins Therapeutic 1 tablet 12/26/24 08:00 12/26/24 09:27
Multivitamin Tablet PO 01/23/25 07:59 1 tablet
DAILY DULCE Administration
Pantoprazole Sodium 40 mg 12/26/24 08:00 12/26/24 09:26
Pantoprazole 40 Mg Delayed Release Tablet PO 01/23/25 07:59 40 mg
DAILY DULCE Administration
Pravastatin Sodium 40 mg 12/26/24 08:00 12/26/24 09:26
Pravastatin 40 Mg Tablet PO 01/23/25 07:59 40 mg
DAILY DULCE Administration
Psyllium Hydrophilic Mucilloid 1 packet 12/25/24 15:35
Psyllium Packet PO 01/22/25 15:34
DAILYPRN PRN
constipation
Simethicone 80 mg 12/25/24 15:36
Simethicone 80 Mg Chewable Tablet PO 01/22/25 15:35
DAILYPRN PRN
gas
Sodium Chloride 0 flush 12/25/24 16:00
Sodium Chloride 0.9% (Flush) Syringe IV 01/22/25 15:59
PER PROTOCOL DULCE
Home Medications
�Medication �Instructions �Recorded
acetaminophen 500 mg tablet 500 mg PO DAILYPRN PRN mild pain 10/02/11
(Tylenol Extra Strength)
coenzyme Q10 100 mg capsule (Co 100 mg PO DAILY Supplement 10/02/11
Q-10)
omeprazole 40 mg capsule,delayed 40 mg PO DAILY Gastrointestinal 10/02/11
release Issue
camphor-menthol 0.2 %-3.5 % 1 applic topical DAILYPRN PRN leg 12/22/24
topical gel cramps
cetirizine 10 mg tablet (Zyrtec) 10 mg PO HS Supplement 12/22/24
cholecalciferol (vitamin D3) 25 25 mcg PO DAILY Supplement 12/22/24
mcg (1,000 unit) tablet
cimetidine 200 mg tablet 200 mg PO DAILYPRN PRN heartburn 12/22/24
cyclosporine 0.05 % eye drops in a 1 drp BOTH EYES BID Eye Condition 12/22/24
dropperette
docusate sodium 100 mg tablet 300 mg PO DAILY Gastrointestinal 12/22/24
Issue
fluticasone propionate 50 2 spray intranasal DAILY Allergies 12/22/24
mcg/actuation nasal
spray,suspension
irbesartan 150 mg tablet 150 mg PO DAILY Blood Pressure 12/22/24
lactase 3,000 unit tablet (Lactaid) 3,000 unit PO TIDPRN PRN lactose 12/22/24
intolerance
meloxicam 7.5 mg tablet 7.5 mg PO DAILY Pain 12/22/24
pravastatin 40 mg tablet 40 mg PO DAILY High Cholesterol 12/22/24
psyllium 1 packet PO DAILYPRN PRN 12/22/24
constipation
simethicone 125 mg tablet 126 mg PO DAILYPRN PRN gas 12/22/24
therapeutic multivitamin 1 tab PO DAILY Supplement 12/22/24
apixaban 5 mg tablet (Eliquis) 5 mg PO BID #60 tabs 12/24/24
diltiazem HCl 120 mg 120 mg PO DAILY #30 caps 12/24/24
capsule,extended release 24 hr
NIH Stroke Score
Subsequent NIH Scale
Date of Subsequent NIH Scale: 12/26/24
Time of Subsequent NIH Scale: 12:20
NIH Stroke Score
Level of Consciousness: 0 - Alert
LOC Questions: 0-Answers both correctly
LOC Commands: 0-Performs both correctly
Best Horizontal Gaze: 0-Normal
Visual Velasquez: 2=Full hemianopia
Facial Palsy: 0=Normal, symmetrical
Motor - Right Arm: 0=No drift 10 seconds
Motor - Left Arm: 0=No drift 10 seconds
Motor - Right Le-No drift 5 seconds
Motor - Left Le-No drift 5 seconds
Limb Ataxia: 0-Absent
Sensation: 0-Normal
Best Language: 0-No aphasia
Dysarthria: 0-Normal
Extinction and Inattention: 0-No abnormality
NIH Total Score:: 2
Modified [place] (mRS) Score
Modified [place] Scale (mRS): Moderate disability. Requires some help, able to walk unassisted.
Score: 3
Alteplase Contraindication
Inclusion and Exclusion criteria reviewed: Yes
Reasons for NON-Tx with Thrombolytics ABSOLUTE Exclusions: Patient taking oral anticoagulant and last dose within 48 hours
IAT Contraindications: NIHSS < 6

Documented by User: Leonard Perez MD 12/26/24 14:16
NIH Stroke Score
NIH Stroke Score
NIH Total Score:: 2
Modified [place] (mRS) Score
Score: 3
[2024-12-26 14:01] LABS: Ferritin 79.3 ng/ml (11.1-264.0)
[2024-12-26 14:04] LABS: Glycohemoglobin (HgbA1c) 6.0 % (4.0-5.6)
--- NOTE | 2024-12-26 14:04 | W.PN.HOSP.TC ---
Today's Communication/Plan
-
Discharge planning Acute Rehab
cont Eliquis statin
blood pressure control
ST/PT/OT
Assessment / Plan
Assessment / Plan
Physical Exam
General: No pallor, cyanosis, or jaundice.
HEENT: Throat clear. PERRLA Normocephalic atraumatic
NECK: Supple. No JVD Carotid Bruits
RESPIRATORY: Lungs clear to auscultation. No crackles wheezes stridor
CVS: S1, S2 normal. RRR. No murmur, rub or gallop.
ABDOMEN: Soft, non-tender. No distension. BS+/normal.
EXTREMITIES: No peripheral cyanosis or edema.
DIRECTOR BUSINESS INTELLIGENCE: AOx3 Conversant Coherent some memory issues word finding difficulties noted strength 5/5 all ext's Immediate and Delayed Recall intact
IMPRESSION:
89F paroxysmal afib HTN HLD GERD from home w AMS. Patient was recently here for afib rvr, underwent successful GABO/cardioversion and was discharged day prior current presentation. Patient and daughter confirm that she was well last night following
return to home. Morning follow, however, patient felt unwell, not her usual self, felt confused and lightheaded. She did not know where she was and had trouble getting to her bathroom from her bed. Patient called daughter, not knowing how to call
911, prompting daughter to call for her. ED evaluation largely unremarkable, CT head neg. Patient's last medication she took was Eliquis from night prior, did not take her morning meds. Symptoms largely improved during ED evaluation, daughter
notes some memory issues persist, patient asking repetitive questions, not normal for her. Hypertensive but otherwise vitals signs stable on room air.
PLAN:
#acute metabolic encephalopathy due to CVA
CT Head appreciated no acute abn's
Brain MRI appreciated
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
Additional smaller nonhemorrhagic left thalamic infarct. Questionable additional tiny punctate acute/subacute infarct in the high left frontoparietal lobe.
neurochecks
Speech and Swallow eval appreciated no dysphagia
PT/OT eval recommended Acute Rehab
Permissive HTN <220/120 completed, goal normotension
ECHO recently done, no need to repeat
Fall precautions
Neg Orthostatic Vitals
CTA head neck appreciated no significant stenosis/occlusion, small b/l pleural effusion (stable respiratory status room air)
Neuro eval appreciated cont Eliquis, statin switched from pravastatin to 80 mg Atorvastatin, patient was instructed not expect to return to driving especially based on her right homonymous hemianopsia
#Recent Hx Afib RVR s/p successful GABO/Cardioverion 12/24
-Cont Eliquis and Cardizem with holding parameters
#anemia of chronic disease
monitor
#essential HTN/HLD
-hold irbesartan for now, cont Cardizem w/ holding parameters
-statin continued
#prediabetes
A1c 6.0
#GERD
-PPI continued
#DVT prophylaxis
-Eliquis
#CODE status
-full code.
Discussed with patient and patient's daughter Dara
I spent a total of 50 minutes with the patient or on the floor. More than 50% of this time involved counseling and coordination of care.
Anticipated Discharge: 24 - 48 hours
Subjective/Interval History
-
Date of Service: December 26, 2024
No acute distress, overall reports feeling well. Denies new acute issues at this time. Daughter Dara present during evaluation.
Objective Data
-
Labs:
Laboratory Results
12/26/24
06:23
WBC 6.2
Hgb 10.7 L
Hct 31.6 L
Plt Count 150
Sodium 140
Potassium 4.5
Chloride 110 H
Carbon Dioxide 24
BUN 21 H
Creatinine 0.8
Glucose 104 H
Calcium 9.1
Vital Signs:
Vital Signs
Temp Pulse Resp BP Pulse Ox
98.1 F 70 16 135/61 99
12/26/24 11:00 12/26/24 11:00 12/26/24 11:00 12/26/24 11:00 12/26/24 11:00
I&O
12/25/24 12/26/24 12/27/24
06:59 06:59 06:59
Intake Total 420 / 420
Balance 420 / 420
[2024-12-26 14:32] LABS: Folate > 20.0 ng/ml (2.76-20); Vitamin B12 688 pg/ml (239-931)
--- NOTE | 2024-12-26 17:42 | CM ---
Spoke with patient and dgt Glory in room . Pt changed to inpatient IMM given explained signed on chart.
PT OT indicated acute rehab .
Dgt requested [facility]
Referral placed.
PLAN To acute rehab
[2024-12-26] MEDS: METAMUCIL, KONSYL 1 PACKET PO (18:13)
[2024-12-26] MEDS: TYLENOL 650 MG PO (22:19)
[2024-12-27] VITALS (7 sets, daily range): BP systolic 117–160; BP diastolic 52–74; PULSE 62–68
[2024-12-27 06:52] LABS: Hematocrit 32.4 % (37.0-47.0); Hemoglobin 11.1 g/dL (12.0-16.0); Mean Corp Hgb Conc. 34.3 g/dL (33.0-37.0); Mean Corpuscular Volume 90.8 fL (81.0-99.0); Platelet Count 157 10^3/uL (130-400); Red Cell Dist. Width 13.7 % (11.5-14.5)
[2024-12-27 07:20] LABS: Blood Urea Nitrogen 20 mg/dl (7-17); Calcium 9.5 mg/dl (8.4-10.2); Carbon Dioxide 23 mmol/L (22-30); Chloride 109 mmol/L (98-107); Estimated Creatinine Clearance 37 ml/min; Glucose 107 mg/dl (70-99); Magnesium 2.0 mg/dl (1.6-2.3); Potassium 4.1 mmol/L (3.5-5.1); Sodium 138 mmol/L (135-145); eGFR > 60.00
--- NOTE | 2024-12-27 08:35 | W.PN.HOSP.TC ---
Today's Communication/Plan
-
Discharge planning acute rehab
ok to dc registered nurse cardiac telemetry
ok to shower
Assessment / Plan
Assessment / Plan
Physical Exam
General: No pallor, cyanosis, or jaundice.
HEENT: Throat clear. PERRLA Normocephalic atraumatic
NECK: Supple. No JVD Carotid Bruits
RESPIRATORY: Lungs clear to auscultation. No crackles wheezes stridor
CVS: S1, S2 normal. RRR. No murmur, rub or gallop.
ABDOMEN: Soft, non-tender. No distension. BS+/normal.
EXTREMITIES: No peripheral cyanosis or edema.
CONSULTING SOFTWARE ENGINEER: AOx3 Conversant Coherent some memory issues word finding difficulties noted strength 5/5 all ext's Immediate and Delayed Recall intact
IMPRESSION:
89F paroxysmal afib HTN HLD GERD from home w AMS. Patient was recently here for afib rvr, underwent successful GABO/cardioversion and was discharged day prior current presentation. Patient and daughter confirm that she was well last night following
return to home. Morning follow, however, patient felt unwell, not her usual self, felt confused and lightheaded. She did not know where she was and had trouble getting to her bathroom from her bed. Patient called daughter, not knowing how to call
911, prompting daughter to call for her. ED evaluation largely unremarkable, CT head neg. Patient's last medication she took was Eliquis from night prior, did not take her morning meds. Symptoms largely improved during ED evaluation, daughter
notes some memory issues persist, patient asking repetitive questions, not normal for her. Hypertensive but otherwise vitals signs stable on room air.
PLAN:
#acute metabolic encephalopathy due to CVA
CT Head appreciated no acute abn's
Brain MRI appreciated
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
Additional smaller nonhemorrhagic left thalamic infarct. Questionable additional tiny punctate acute/subacute infarct in the high left frontoparietal lobe.
neurochecks
Speech and Swallow eval appreciated no dysphagia
PT/OT eval recommended Acute Rehab
Permissive HTN <220/120 completed, goal normotension
ECHO recently done, no need to repeat
Fall precautions
Neg Orthostatic Vitals
CTA head neck appreciated no significant stenosis/occlusion, small b/l pleural effusion (stable respiratory status room air)
Neuro eval appreciated cont Eliquis, statin switched from pravastatin to 80 mg Atorvastatin, patient was instructed not expect to return to driving especially based on her right homonymous hemianopsia
#Recent Hx Afib RVR s/p successful GABO/Cardioverion 12/24
-Cont Eliquis and Cardizem with holding parameters
#anemia of chronic disease
monitor
#essential HTN/HLD
-Cardizem w/ holding parameters
-irbesartan resumed with holding parameters
-statin continued
#prediabetes
A1c 6.0
#GERD
-PPI continued
#DVT prophylaxis
-Eliquis
#CODE status
-full code.
Discussed with patient and patient's daughter Dara
I spent a total of 45 minutes with the patient or on the floor. More than 50% of this time involved counseling and coordination of care.
Anticipated Discharge: 24 - 48 hours
Subjective/Interval History
-
Date of Service: December 27, 2024
No acute distress, sitting up comfortably in chair. Overall reports feeling well. Denies new acute issues at this time.
Objective Data
-
Labs:
Laboratory Results
12/27/24
06:04
WBC 6.5
Hgb 11.1 L
Hct 32.4 L
Plt Count 157
Sodium 138
Potassium 4.1
Chloride 109 H
Carbon Dioxide 23
BUN 20 H
Creatinine 0.9
Glucose 107 H
Calcium 9.5
Vital Signs:
Vital Signs
Temp Pulse Resp BP Pulse Ox
97.7 F 61 16 143/63 100
12/27/24 07:08 12/27/24 07:08 12/27/24 07:08 12/27/24 07:08 12/27/24 07:08
I&O
12/26/24 12/27/24 12/28/24
06:59 06:59 06:59
Intake Total 420 / 420 360 / 360
Balance 420 / 420 360 / 360
[2024-12-27] MEDS: CARDIZEM CD 120 MG PO (08:40)
[2024-12-27] MEDS: PRAVACHOL 40 MG PO (08:41)
[2024-12-27] MEDS: RESTASIS 0.05% OPHTHALMIC EMULSION 1 DROPS BOTH EYES ×2 (08:41→19:50)
[2024-12-27] MEDS: THERAGRAN 1 TABLET PO (08:41)
[2024-12-27] MEDS: PROTONIX 40 MG PO (08:41)
[2024-12-27] MEDS: ELIQUIS 5 MG PO ×2 (08:41→19:50)
[2024-12-27] MEDS: VITAMIN D3 (cholecalciferol) 25 MCG PO (08:41)
[2024-12-27] MEDS: FLUSH (NSS) 1 FLUSH IV (08:41)
[2024-12-27] MEDS: ZYRTEC 10 MG PO (21:48)
--- NOTE | 2024-12-28 06:49 | W.PN.HOSP.TC ---
Today's Communication/Plan
-
Discharge planning Acute Rehab
pending routine EEG
ST/PT/OT
Assessment / Plan
Assessment / Plan
Physical Exam
General: No pallor, cyanosis, or jaundice.
HEENT: Throat clear. PERRLA Normocephalic atraumatic
NECK: Supple. No JVD Carotid Bruits
RESPIRATORY: Lungs clear to auscultation. No crackles wheezes stridor
CVS: S1, S2 normal. RRR. No murmur, rub or gallop.
ABDOMEN: Soft, non-tender. No distension. BS+/normal.
EXTREMITIES: No peripheral cyanosis or edema.
STOCKROOM SELECTOR: AOx3 Conversant Coherent some memory issues word finding difficulties noted strength 5/5 all ext's Immediate and Delayed Recall intact
IMPRESSION:
89F paroxysmal afib HTN HLD GERD from home w AMS. Patient was recently here for afib rvr, underwent successful GABO/cardioversion and was discharged day prior current presentation. Patient and daughter confirm that she was well last night following
return to home. Morning follow, however, patient felt unwell, not her usual self, felt confused and lightheaded. She did not know where she was and had trouble getting to her bathroom from her bed. Patient called daughter, not knowing how to call
911, prompting daughter to call for her. ED evaluation largely unremarkable, CT head neg. Patient's last medication she took was Eliquis from night prior, did not take her morning meds. Symptoms largely improved during ED evaluation, daughter
notes some memory issues persist, patient asking repetitive questions, not normal for her. Hypertensive but otherwise vitals signs stable on room air.
PLAN:
#acute metabolic encephalopathy due to CVA
CT Head appreciated no acute abn's
Brain MRI appreciated
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
Additional smaller nonhemorrhagic left thalamic infarct. Questionable additional tiny punctate acute/subacute infarct in the high left frontoparietal lobe.
neurochecks
Speech and Swallow eval appreciated no dysphagia
PT/OT eval recommended Acute Rehab
Permissive HTN <220/120 completed, goal normotension
ECHO recently done, no need to repeat
Fall precautions
Neg Orthostatic Vitals
CTA head neck appreciated no significant stenosis/occlusion, small b/l pleural effusion (stable respiratory status room air)
Neuro eval appreciated cont Eliquis, statin switched from pravastatin to 80 mg Atorvastatin, patient was instructed not expect to return to driving especially based on her right homonymous hemianopsia
#Possible simple partial sz contributing to confusion episodes
per daughter pt periodically mid-sentence starts reporting feeling confused like she's 'in a dream'
Follow up Neuro eval appreciated routine EEG pending
Holding home zyrtec given episodes confusion noted as above
#Recent Hx Afib RVR s/p successful GABO/Cardioverion 12/24
-Cont Eliquis and Cardizem with holding parameters
#anemia of chronic disease
monitor
#essential HTN/HLD
-Cardizem w/ holding parameters
-irbesartan resumed with holding parameters
-statin continued
#prediabetes
A1c 6.0
#GERD
-PPI continued
#DVT prophylaxis
-Eliquis
#CODE status
-full code.
Discussed with patient and patient's daughter Dara
I spent a total of 45 minutes with the patient or on the floor. More than 50% of this time involved counseling and coordination of care.
Anticipated Discharge: 24 - 48 hours
Subjective/Interval History
-
Date of Service: December 28, 2024
No acute distress, sitting up comfortably in chair. Persistent memory issues noted. Patient can never remember that she was told she has stroke. Reacts as if it's the first time she's hearing about stroke within minutes apart of telling her.
Daughter also notes patient appears to intermittently get confused while talking mid-sentence, patient reporting that she feels like she's in a dream when that happens. No loss of consciousness shaking or blank staring noted.
Objective Data
-
Labs:
Laboratory Results
12/28/24
06:29
WBC Pending
Hgb Pending
Hct Pending
Plt Count Pending
Sodium Pending
Potassium Pending
Chloride Pending
Carbon Dioxide Pending
BUN Pending
Creatinine Pending
Glucose Pending
Calcium Pending
Vital Signs:
Vital Signs
Temp Pulse Resp BP Pulse Ox
98.2 F 61 18 146/52 99
12/27/24 23:12 12/27/24 23:12 12/27/24 23:12 12/27/24 23:12 12/27/24 23:12
I&O
12/26/24 12/27/24 12/28/24
06:59 06:59 06:59
Intake Total 420 / 420 360 / 360 720 / 720
Balance 420 / 420 360 / 360 720 / 720
[2024-12-28 07:02] VITALS: BP 143/62
[2024-12-28 07:39] LABS: Hematocrit 34.2 % (37.0-47.0); Hemoglobin 11.2 g/dL (12.0-16.0); Mean Corp Hgb Conc. 32.7 g/dL (33.0-37.0); Mean Corpuscular Volume 91.7 fL (81.0-99.0); Platelet Count 164 10^3/uL (130-400); Red Cell Dist. Width 13.6 % (11.5-14.5)
[2024-12-28 07:59] LABS: Blood Urea Nitrogen 18 mg/dl (7-17); Calcium 9.4 mg/dl (8.4-10.2); Carbon Dioxide 25 mmol/L (22-30); Chloride 108 mmol/L (98-107); Estimated Creatinine Clearance 41 ml/min; Glucose 102 mg/dl (70-99); Magnesium 2.0 mg/dl (1.6-2.3); Potassium 4.1 mmol/L (3.5-5.1); Sodium 139 mmol/L (135-145); eGFR > 60.00
[2024-12-28] MEDS: AVAPRO 150 MG PO (09:07)
[2024-12-28] MEDS: CARDIZEM CD 120 MG PO (09:07)
[2024-12-28] MEDS: ELIQUIS 5 MG PO ×2 (09:07→20:03)
[2024-12-28] MEDS: PRAVACHOL 40 MG PO (09:08)
[2024-12-28] MEDS: VITAMIN D3 (cholecalciferol) 25 MCG PO (09:08)
[2024-12-28] MEDS: RESTASIS 0.05% OPHTHALMIC EMULSION 1 DROPS BOTH EYES ×2 (09:08→20:03)
[2024-12-28] MEDS: THERAGRAN 1 TABLET PO (09:08)
[2024-12-28] MEDS: PROTONIX 40 MG PO (09:08)
[2024-12-28] MEDS: FLUSH (NSS) 1 FLUSH IV (09:09)
[2024-12-28 15:21] VITALS: BP 108/47; BP 152/61; PULSE 70
[2024-12-28 15:22] VITALS: BP 143/63
[2024-12-28 15:33] VITALS: BP 108/47; BP 152/61; PULSE 70; PULSE 73; O2SAT 97
--- NOTE | 2024-12-28 17:32 | W.PN.NEURO.1 ---
Today's Communication / Plan
-
routine EEG
Neuro Assessment/Plan
Assessment
Abrupt onset of change in mental status following newly diagnosed and treated atrial fibrillation. Patient received cardioversion but returned with confusion which is not resolved entirely as it is a recurrent as a lack of recall
Would continue the patient's usual apixaban which was initiated on 12/24/2024 despite medium sized stroke based on most recent information suggesting against hemorrhagic conversion and more likely that the patient may experience an acute ischemic
worsening without continued anticoagulation therapy
Advance the patient's cholesterol-lowering agent from outpatient use of pravastatin 40 mg to the use of atorvastatin 80 mg despite the patient's advanced age
Check blood work for potential metabolic abnormalities producing symptoms
Rehabilitation evaluations and treatment
Goal of normotension
Goal of normoglycemia
Patient was instructed not expect to return to driving especially based on her right homonymous hemianopsia
Agree with concerns that these episodes of confusion and dream-like state could be seizures, check routine EEG
Subjective/Objective
Subjective Data
Date of Service: December 28, 2024
admitted for L occipital and L thalamic stroke (all REHABILITATION CLERK territory on MRI) and a tiny subacute appearing stroke left parietal.
Spoke with Dr Love, Awaiting acute rehab memory deficits persist (patient can never remember being told she has stroke) patient's daughter also endorses periodic episodes where patient is confused midsentence and feels like she's in a dream. No
shaking or pauses noted
seen in follow up, patient endorses this, is unable to tell me how often this happens. Admits to some visual hallucinations in her right visual field blind spot.
Objective Data
Vital Signs
Temp Pulse Resp BP Pulse Ox
36.6 C 73 18 143/63 94
12/28/24 15:22 12/28/24 15:22 12/28/24 15:22 12/28/24 15:22 12/28/24 15:22
Lab Results
12/28/24 06:29
12/28/24 06:
Sodium 139 mmol/L (135-145) 12/28/24 06:
Potassium 4.1 mmol/L (3.5-5.1) 12/28/24 06:
BUN 18 mg/dl (7-17) H 12/28/24 06:
Glucose 102 mg/dl (70-99) H 12/28/24 06:
Calcium 9.4 mg/dl (8.4-10.2) 12/28/24 06:
Phosphorus 4.2 mg/dl (2.5-4.5) 12/28/24 06:
LDL Cholesterol, Calc 101 mg/dl 12/26/24 06:23
Vitamin B12 688 pg/ml (239-931) 12/26/24 06:23
Patient Allergies
pollen extracts Allergy (Verified 12/25/24 15:32)
seasonal-congestion
[2024-12-28] MEDS: LIPITOR 80 MG PO (18:27)
[2024-12-28] MEDS: ZYRTEC 10 MG PO (21:32)
[2024-12-28] MEDS: TYLENOL 650 MG PO (22:33)
[2024-12-28 23:01] VITALS: BP 129/56
[2024-12-29 07:37] LABS: Hematocrit 33.9 % (37.0-47.0); Hemoglobin 11.4 g/dL (12.0-16.0); Mean Corp Hgb Conc. 33.6 g/dL (33.0-37.0); Mean Corpuscular Volume 91.4 fL (81.0-99.0); Platelet Count 165 10^3/uL (130-400); Red Cell Dist. Width 13.7 % (11.5-14.5)
[2024-12-29 08:05] LABS: Blood Urea Nitrogen 25 mg/dl (7-17); Calcium 9.4 mg/dl (8.4-10.2); Carbon Dioxide 25 mmol/L (22-30); Chloride 107 mmol/L (98-107); Estimated Creatinine Clearance 37 ml/min; Glucose 109 mg/dl (70-99); Magnesium 2.0 mg/dl (1.6-2.3); Potassium 4.4 mmol/L (3.5-5.1); Sodium 137 mmol/L (135-145); eGFR > 60.00
[2024-12-29 08:26] VITALS: BP 125/60
[2024-12-29] MEDS: ELIQUIS 5 MG PO ×2 (09:57→19:49)
[2024-12-29] MEDS: PROTONIX 40 MG PO (09:57)
[2024-12-29] MEDS: AVAPRO 150 MG PO (09:57)
[2024-12-29] MEDS: THERAGRAN 1 TABLET PO (09:57)
[2024-12-29] MEDS: VITAMIN D3 (cholecalciferol) 25 MCG PO (09:58)
[2024-12-29] MEDS: RESTASIS 0.05% OPHTHALMIC EMULSION 1 DROPS BOTH EYES ×2 (09:58→19:49)
[2024-12-29] MEDS: CARDIZEM CD PO (09:58)
[2024-12-29] MEDS: TYLENOL 650 MG PO ×2 (10:07→20:06)
--- NOTE | 2024-12-29 11:30 | CM ---
Addendum entered by Renetta Britt 12/29/24 15:48:
Call placed to [facility] [phone] for Acute rehab Auth at [facility] Pending reference # [id number], waiting on Auth .
Addendum entered by Renetta Britt 12/29/24 15:14:
Patient has bee accepted at [facility] will submit for Auth through insurance
[facility]
Dr. Ariel Perez

Addendum entered by Renetta Britt 12/29/24 13:21:
manager sales support spoke with patient and patient's daughter at bedside, and they are agreeable [facility], referral sent to [facility].
Original Note:
manager sales support reviewed patient's chart and met with patient and recommendation is for acute rehab, referral sent to [facility] at [facility] has no beds available today. Will review [facility] and [facility].
Plan; Acute rehab placement.
[2024-12-29 11:34] VITALS: BP 152/64
--- NOTE | 2024-12-29 12:07 | CON.MR ---
Documented by User: Janae Aguilera MD, Resident 12/29/24 17:59
Consultation
Consultation Request
Date/Time Consultation Requested: 12/29/2024
Date/Time Consultation Performed: 12/29/2024
Requesting Provider: Raghavendra Dixon
Performing Provider: Dr. Pulido
Reason for Consultation: CVA
Medical History
-
Chief Complaint: Altered mental status
History of Present Illness:
Ms. Lopez is a 89F with a past medical history of newly diagnosed paroxysmal afib on Eliquis, HTN, HLD, GERD from home w AMS. Patient was recently here 12/24 for afib rvr, underwent successful GABO/cardioversion and was discharged. Patient and
daughter confirm that she was well night 12/24 following return to home. Morning follow, however, patient felt unwell, not her usual self, felt confused and lightheaded. She did not know where she was and had trouble getting to her bathroom from her
bed. ED evaluation largely unremarkable, CT head neg. Symptoms largely improved during ED evaluation, daughter notes some memory issues persist, patient asking repetitive questions, not normal for her. In the hospital MRI was ordered which showed
large nonhemorrhagic acute/subacute left occipital lobe infarct, smaller left thalamic infarct, possible left frontoparietal infarct. CTA head and neck showed no significant stenosis. Per neurology most likely cause of stroke is embolic given
recent diagnosis of A-fib. Patient was continued on apixaban and statin dose was increased. Patient continues to have episodes of confusion and dreamlike state therefore neurology ordered an EEG which is currently pending.
Past Medical History
Past Medical History: Arrhythmias (Paroxysmal A-fib), GERD, HTN and Hypercholesterolemia
Past Surgical History: Orthopedic (Right shoulder replacement, bilateral knee replacements)
Family History
Family History: Reviewed & Not Pertinent
Social History
Functional Level Premorbidity:
Independent for all activities.
Current Funct Level: Ambulation, Transfer, UE/LE Dressing:
Bed mobility: Not assessed
Transfer: Supervision
Ambulation: 100 feet x 2 with rolling walker contact-guard min a
ADL status: Grooming supervision, toileting supervision, upper extremity self-care min a, lower extremity self-care min a, homemaking min a
Tobacco: Non-Smoker
Alcohol: Occasional
Drug: None
Personal:
Living: Alone
Is 24 hour care available: No
Number of Floors: 2
# Steps to Enter: 3
# Steps to Second Floor: 12
Potential First Floor Set Up: No
Driving: Yes
Employment: Retired
Allergies / Home Medications
Allergy/AdvReac Type Severity Reaction Status Date / Time
pollen extracts Allergy seasonal-co Verified 12/25/24 15:32
ngestion
�Medication �Instructions �Recorded �Confirmed �Last Taken �Type
acetaminophen 500 mg tablet 500 mg PO DAILYPRN PRN mild pain 10/02/11 12/25/24 12/21/24 History
(Tylenol Extra Strength)
coenzyme Q10 100 mg capsule (Co 100 mg PO DAILY Supplement 10/02/11 12/25/24 12/22/24 History
Q-10)
omeprazole 40 mg capsule,delayed 40 mg PO DAILY Gastrointestinal 10/02/11 12/25/24 12/24/24 08:00 History
release Issue
camphor-menthol 0.2 %-3.5 % 1 applic topical DAILYPRN PRN leg 12/22/24 12/25/24 Unknown History
topical gel cramps
cetirizine 10 mg tablet (Zyrtec) 10 mg PO HS Supplement 12/22/24 12/25/24 12/24/24 History
cholecalciferol (vitamin D3) 25 25 mcg PO DAILY Supplement 12/22/24 12/25/24 12/24/24 08:00 History
mcg (1,000 unit) tablet
cimetidine 200 mg tablet 200 mg PO DAILYPRN PRN heartburn 12/22/24 12/25/24 12/21/24 History
cyclosporine 0.05 % eye drops in a 1 drp BOTH EYES BID Eye Condition 12/22/24 12/25/24 12/24/24 08:00 History
dropperette
docusate sodium 100 mg tablet 300 mg PO DAILY Gastrointestinal 12/22/24 12/25/24 12/21/24 History
Issue
fluticasone propionate 50 2 spray intranasal DAILY Allergies 12/22/24 12/25/24 12/22/24 History
mcg/actuation nasal
spray,suspension
irbesartan 150 mg tablet 150 mg PO DAILY Blood Pressure 12/22/24 12/25/24 12/24/24 08:00 History
lactase 3,000 unit tablet (Lactaid) 3,000 unit PO TIDPRN PRN lactose 12/22/24 12/25/24 12/22/24 History
intolerance
meloxicam 7.5 mg tablet 7.5 mg PO DAILY Pain 12/22/24 12/25/24 12/22/24 History
pravastatin 40 mg tablet 40 mg PO DAILY High Cholesterol 12/22/24 12/25/24 12/24/24 08:00 History
psyllium 1 packet PO DAILYPRN PRN 12/22/24 12/25/24 12/19/24 History
constipation
simethicone 125 mg tablet 126 mg PO DAILYPRN PRN gas 12/22/24 12/25/24 12/22/24 History
therapeutic multivitamin 1 tab PO DAILY Supplement 12/22/24 12/25/24 12/24/24 08:00 History
apixaban 5 mg tablet (Eliquis) 5 mg PO BID #60 tabs 12/24/24 12/25/24 12/24/24 Rx
diltiazem HCl 120 mg 120 mg PO DAILY #30 caps 12/24/24 12/25/24 12/24/24 08:00 Rx
capsule,extended release 24 hr
Review Of Systems
-
Unable to obtain full review of systems at this time due to: Dementia
History Source: Patient
Constitutional: Reports No Symptoms; Denies Fever or Night Sweats
Eye: Reports Visual Field Cut; Denies Blurry Vision
EENT: Reports No Symptoms; Denies Tearing, Sore Throat or Runny Nose
Respiratory: Reports No Symptoms; Denies Cough or Trouble Breathing
Cardiac: Reports No Symptoms; Denies Chest Pain or Palpitations
Abdomen/GI: Reports No Symptoms; Denies Abdominal Pain, Nausea, Vomiting, Diarrhea or Constipated
: Reports No Symptoms; Denies Dysuria
Musculoskeletal: Reports Other (Bilateral shoulder stiffness)
Neurological: Reports No Symptoms; Denies Dizzy, Headache, Weakness or Numbness
Physical Exam
Active Medications
Generic Name Dose Route Start Last Admin
Trade Name Freq PRN Reason Stop Dose Admin
Acetaminophen 650 mg 12/25/24 14:54 12/29/24 10:07
Acetaminophen 325 Mg Tablet PO 01/22/25 14:53 650 mg
Q4HPRN PRN Administration
CHAMPAGNE, mild pain, or temp >100.4F
Apixaban 5 mg 12/25/24 20:00 12/29/24 09:57
Apixaban (Eliquis) 5 Mg Tablet PO 01/22/25 19:59 5 mg
BID DULCE Administration
Atorvastatin Calcium 80 mg 12/28/24 18:00 12/28/24 18:27
Atorvastatin (Lipitor) 80 Mg Tablet PO 01/25/25 17:59 80 mg
QPM DULCE Administration
Cetirizine HCl 10 mg 12/25/24 22:00 12/28/24 21:32
Cetirizine Hcl 10 Mg Tablet PO 01/22/25 21:59 10 mg
On Hold: 12/29/24 05:07 HS DULCE Administration
Cholecalciferol 25 mcg 12/26/24 08:00 12/29/24 09:58
Cholecalciferol (Vitamin D3) 25 Mcg Tablet (1,000 Units) PO 01/23/25 07:59 25 mcg
DAILY DULCE Administration
Cyclosporine 1 drops 12/25/24 20:00 12/29/24 09:58
Cyclosporine 0.05% (Ophthalmic Emulsion) 10 Drop Droperette BOTH EYES 01/22/25 19:59 1 drops
BID DULCE Administration
Diltiazem HCl 120 mg 12/26/24 08:00 12/29/24 09:58
Diltiazem 120 Mg Extended Release (24 H) Capsule PO 01/23/25 07:59 Not Given
DAILY DULCE
Irbesartan 150 mg 12/28/24 08:00 12/29/24 09:57
Irbesartan 150 Mg Tablet PO 01/25/25 07:59 150 mg
DAILY DULCE Administration
Metoprolol Tartrate 5 mg 12/25/24 14:54
Metoprolol 5 Mg/5 Ml Vial IV 01/22/25 14:53
Q4HPRN PRN
persistent HR>120
Multivitamins Therapeutic 1 tablet 12/26/24 08:00 12/29/24 09:57
Multivitamin Tablet PO 01/23/25 07:59 1 tablet
DAILY DULCE Administration
Pantoprazole Sodium 40 mg 12/26/24 08:00 12/29/24 09:57
Pantoprazole 40 Mg Delayed Release Tablet PO 01/23/25 07:59 40 mg
DAILY DULCE Administration
Psyllium Hydrophilic Mucilloid 1 packet 12/25/24 15:35 12/26/24 18:13
Psyllium Packet PO 01/22/25 15:34 1 packet
DAILYPRN PRN Administration
constipation
Simethicone 80 mg 12/25/24 15:36
Simethicone 80 Mg Chewable Tablet PO 01/22/25 15:35
DAILYPRN PRN
gas
Sodium Chloride 0 flush 12/25/24 16:00 12/28/24 09:09
Sodium Chloride 0.9% (Flush) Syringe IV 01/22/25 15:59 1 flush
PER PROTOCOL DULCE Administration
Vital Signs
Temp Pulse Resp BP Pulse Ox
97.7 F 63 18 125/60 98
12/29/24 08:26 12/29/24 09:57 12/29/24 08:26 12/29/24 09:57 12/29/24 08:26
Height 5 ft 1 in
Actual Weight 65.771 kg
Body Mass Index (BMI) 27.4
Physical Exam
Physical Exam:
General Appearance/Observation: Well-developed, well-nourished individual in no apparent distress.
Pain/Comfort Assessment: Denies
Mood/Affect: Appropriate
Integumentary/Operative Site:
Pressure Ulcer: absent
Other Type of Wound: absent
Eyes: Conjunctiva/Lids: normal Pupils: pupils equal round and reactive to light and Accommodation
Ears/Nose/Throat: oral mucosa moist, throat clear. Lips/Teeth/Gums: normal
Neck: No muscle spasm or tenderness
Cardiovascular: Heart: regular rate, rhythm, no murmur
Pulses: dorsalis pedis 2+ bilaterally
Respiratory: Respiratory Effort/Chest Expansion: normal Auscultation: Clear to auscultation bilaterally
Gastrointestinal: abdomen not tender, no distension, normal abdominal bowel sounds
Genitourinary: No Green
Rectal Exam: Deferred
Extremities: Edema: None Cyanosis: None Trophic changes: None
Neurology Exam:
Orientation: Alert, Oriented to self, Time, Place, situation
Memory: Intact immediately but not at 3 minutes
Higher cortical function
Speech: Intact
Repetition: Intact
Comprehension: Intact
Two step command: Intact
Naming: Intact
Cranial Nerves:
CNII: Pupillary light reflex: Intact Visual Field: Right homonymous hemianopia
CN III, IV, : Extraocular muscles: Intact
CN V: Facial Sensation at Forehead: Intact , Maxilla: Intact, Mandible: Intact
CN VII: Facial movement: Symmetric
CN VIII: Hearing: Normal
CN IX/X: Speech & swallow: Normal, Position of Uvula: Midline
CN XI: Shoulder shrug: Symmetric
CN XII: Tongue protrusion: Midline
Sensory:
Light touch: Intact in bilateral upper and lower extremities
Pinprick: Intact bilaterally upper and lower extremities
Proprioception: Intact
Reflexes:
Biceps: 2+ bilaterally
Brachioradialis: 2+ bilaterally
Triceps: 2+ bilaterally
Patellar: 2+ bilaterally
Achilles: 0 bilaterally
Babinski: Downgoing bilaterally
Clonus: None
Agustina: Negative bilaterally
Cerebellar: Dysmetria/Ataxia: None
Musculoskeletal:
Motor: (Manual muscle scale 0-5)
Muscle SA EF WE EE FF FA HF KE DF EHL PF
Right 5 5 5 5 5 5 4 5 5 5 5
Left 5 5 5 5 5 5 5 5 5 5 5
Tone: Normal in all extremities
Range of Motion: Passively within normal limits in all extremities
Lab Results
12/29/24 07:05
12/29/24 07:05
WBC 7.3 10^3/uL (4.8-10.8) 12/29/24 07:05
Hgb 11.4 g/dL (12.0-16.0) L 12/29/24 07:05
Hct 33.9 % (37.0-47.0) L 12/29/24 07:05
MCV 91.4 fL (81.0-99.0) 12/29/24 07:05
Plt Count 165 10^3/uL (130-400) 12/29/24 07:05
Sodium 137 mmol/L (135-145) 12/29/24 07:05
Potassium 4.4 mmol/L (3.5-5.1) 12/29/24 07:05
Chloride 107 mmol/L (98-107) 12/29/24 07:05
Carbon Dioxide 25 mmol/L (22-30) 12/29/24 07:05
BUN 25 mg/dl (7-17) H 12/29/24 07:05
Creatinine 0.9 mg/dL (0.6-1.0) 12/29/24 07:05
eGFR > 60.00 12/29/24 07:05
Glucose 109 mg/dl (70-99) H 12/29/24 07:05
Hemoglobin A1c 6.0 % (4.0-5.6) H 12/26/24 06:23
Calcium 9.4 mg/dl (8.4-10.2) 12/29/24 07:05
Phosphorus 4.3 mg/dl (2.5-4.5) 12/29/24 07:05
Magnesium 2.0 mg/dl (1.6-2.3) 12/29/24 07:05
Total Bilirubin 0.8 mg/dl (0.2-1.3) 12/25/24 11:37
AST 31 U/L (14-36) 12/25/24 11:37
ALT 43 U/L (0-35) H 12/25/24 11:37
Alkaline Phosphatase 93 U/L (38-126) 12/25/24 11:37
Total Protein 7.8 g/dl (6.3-8.2) D 12/25/24 11:37
Albumin 4.7 g/dl (3.5-5.0) 12/25/24 11:37
Diagnostic Results
As per HPI.
Assessment / Plan
Assessment
89F with newly diagnosed paroxysmal afib on anticoagulation HTN HLD GERD from home admitted for AMS. patient felt unwell, not her usual self, felt confused and lightheaded. CT head neg. MRI with large left occipital lobe infarct
Plan
PM&R PT/OT to increase independence with ADLs, improve balance, coordination, endurance, strength, mobility, community reintegration, decreased burden of care on others and family education.
CVA: Secondary prophylaxis with Eliquis statin, and blood pressure control (SBP less than 180 and diastolic less than 100 to participate with therapy for ischemic stroke). Continue to monitor neurologic status.
HTN: continue medications, monitor closely
HLD: Statin
Atrial fibrillation: Continue anticoagulation
Anemia: Likely multifactorial. Continue to monitor.
Skin: monitor for pressure sores/rashes/lesions.
Pain: acetaminophen or oxycodone as needed.
Bowel: Colace and Senna, PRN bisacodyl.
Bladder: Time void, PVRs, PRN straight cath.
GI Prophylaxis: Pantoprazole
DVT Prophylaxis: On Eliquis
Pulmonary: Incentive spirometry
Safety: Continue to reinforce assistance with all transfers.
Code Status: DNR
Dispo: Acute rehab
Functional and Medical Goals: Modified Independent with ADL�s, ambulation, transfers
Summary
-
Things that must be addressed in Hospital prior to discharge:
Patient must be stable on oral pain medications.
Blood pressure must be less than 180 systolic and 100 diastolic for 24 hours before being stable for transfer to SNF/acute rehab.
Please give blood pressure parameters.
Discharge Destination: Acute rehab
Summary of recommendations:
- Discharge Destination: Acute rehab patient will benefit from PT/OT to increase independence with ADLs, improve balance, coordination, endurance, strength, mobility, community reintegration, decreased burden of care on others and family education.
Will sign off, please re-consult if needed.
Thank you for allowing me to care for your patient. Please contact me with any questions or concerns.
Comments
-
This note was dictated using a voice recognition system. Please excuse any typographical errors from personnel manager. If you believe there are any discrepancies, please notify our office.

Documented by User: Addy Pulido MD 12/29/24 22:49
Medical History
-
History of Present Illness:
Ms. Lopez is a 89F with a past medical history of newly diagnosed paroxysmal afib on Eliquis, HTN, HLD, GERD from home w AMS. Patient was recently here 12/24 for afib rvr, underwent successful GABO/cardioversion and was discharged. Patient and
daughter confirm that she was well night 12/24 following return to home. Morning follow, however, patient felt unwell, not her usual self, felt confused and lightheaded. She did not know where she was and had trouble getting to her bathroom from her
bed. ED evaluation largely unremarkable, CT head neg. Symptoms largely improved during ED evaluation, daughter notes some memory issues persist, patient asking repetitive questions, not normal for her. In the hospital MRI was ordered which showed
large nonhemorrhagic acute/subacute left occipital lobe infarct, smaller left thalamic infarct, possible left frontoparietal infarct. CTA head and neck showed no significant stenosis. Per neurology most likely cause of stroke is embolic given
recent diagnosis of A-fib. Patient was continued on apixaban and statin dose was increased. Patient continues to have episodes of confusion and dreamlike state therefore neurology ordered an EEG which is currently pending.
Overall she is feeling fine. Denies any current concerns. Just went for an EEG. Would like to go to an acute rehab which her daughter approves of.
Social History
Occupation: Retired
Physical Exam
Physical Exam
Physical Exam:
General Appearance/Observation: Well-developed, well-nourished female in no apparent distress.
Pain/Comfort Assessment: Denies
Mood/Affect: Appropriate
Integumentary/Operative Site: No lesions noted during course of exam.
Eyes: Conjunctiva/Lids: normal Pupils: pupils equal round and reactive to light and Accommodation
Ears/Nose/Throat: oral mucosa moist, throat clear. Lips/Teeth/Gums: normal
Neck: No muscle spasm or tenderness
Cardiovascular: Heart: regular rate, rhythm, no murmur
Pulses: dorsalis pedis 2+ bilaterally
Respiratory: Respiratory Effort/Chest Expansion: normal Auscultation: Clear to auscultation bilaterally
Gastrointestinal: abdomen not tender, no distension, normal abdominal bowel sounds
Genitourinary: No Green
Rectal Exam: Deferred
Extremities: Edema: None Cyanosis: None Trophic changes: None
Neurology Exam:
Orientation: Alert, Oriented to self, Time, Place, situation
Memory: Intact immediately but not at 3 minutes
Repetition: Intact
Comprehension: Intact
Two step command: Intact
Naming: Intact
Cranial Nerves:
CNII: Pupillary light reflex: Intact Visual Field: Right homonymous hemianopia
CN III, IV, : Extraocular muscles: Intact
CN V: Facial Sensation at Forehead: Intact , Maxilla: Intact, Mandible: Intact
CN VII: Facial movement: Symmetric
CN VIII: Hearing: Normal
CN IX/X: Speech & swallow: Normal, Position of Uvula: Midline
CN XI: Shoulder shrug: Symmetric
CN XII: Tongue protrusion: Midline
Sensory:
Light touch: Intact in bilateral upper and lower extremities
Pinprick: Intact bilaterally upper and lower extremities
Proprioception: Intact
Reflexes:
Biceps: 2+ bilaterally
Brachioradialis: 2+ bilaterally
Triceps: 2+ bilaterally
Patellar: 2+ bilaterally
Achilles: 0 bilaterally
Babinski: Downgoing bilaterally
Clonus: None
Agustina: Negative bilaterally
Cerebellar: Dysmetria/Ataxia: Past pointing and difficulty hitting finger bilaterally that appears to be a visual issue, not ataxic.
Musculoskeletal: Motor: (Manual muscle scale 0-5)
Muscle SA EF WE EE FF FA HF KE DF EHL PF
Right 5 5 5 5 5 5 4 5 5 5 5
Left 5 5 5 5 5 5 5 5 5 5 5
Tone: Normal in all extremities
Range of Motion: Passively within normal limits in all extremities
Assessment / Plan
Assessment
89 y/o R-handed F with PMH (newly diagnosed paroxysmal afib on anticoagulation HTN HLD GERD)with confusion and feeling light headed and found to have a large nonhemorrhagic acute/subacute left occipital lobe infarct, smaller nonhemorrhagic left
thalamic infarct and questionable additional tiny punctate acute/subacute infarct in the high left frontoparietal lobe with ADL and ambulatory dysfunction.
Plan
PM&R PT/OT to increase independence with ADLs, improve balance, coordination, endurance, strength, mobility, community reintegration, decreased burden of care on others and family education.
CVA: Secondary prophylaxis with Eliquis, statin, and blood pressure control (SBP less than 180 and diastolic less than 100 to participate with therapy for ischemic stroke). Continue to monitor neurologic status.
HTN: Diltiazem, irbesartan, metoprolol. Monitor
HLD: Statin
Atrial fibrillation: Eliquis anticoagulation, metoprolol and diltiazem for rate control.
Anemia: Likely multifactorial. Trending up from 10.7-11 0.1-11 0.2-11.4. No active bleed noted.
Skin: monitor for pressure sores/rashes/lesions.
Pain: acetaminophen as needed.
Bowel: Colace and Senna, PRN bisacodyl.
Bladder: Time void, PVRs, PRN straight cath.
GERD: Pantoprazole
DVT Prophylaxis: Mechanical and Eliquis
Pulmonary: Incentive spirometry
Safety: Continue to reinforce assistance with all transfers.
Code Status: DNR
Dispo: Acute inpatient rehabilitation program for stroke recovery. Spoke with patient who is in agreement with acute inpatient rehabilitation after discussion of risks and benefits. She notes that her daughter is also in favor of this.
Functional and Medical Goals: Modified Independent with ADL�s, ambulation, transfers
Attending Statement: I performed a history and examined the patient today.� I reviewed the care plan with therapy, nursing, and the resident.� I agree with the history and ROS above as modified.� The physical exam and plan documented reflects my
examination and plan.� A total of 60 minutes were spent with the patient preparing for the evaluation, obtaining history, performing examination and evaluation, counseling, data review, case management, care coordination, weight recorder, and EMR
documentation.
--- NOTE | 2024-12-29 14:37 | W.PN.HOSP.TC ---
Today's Communication/Plan
-
asa, statin
EEG
disposition efforts on going
Assessment / Plan
Assessment / Plan
Physical Exam
General: No pallor, cyanosis, or jaundice.
HEENT: Throat clear. PERRLA Normocephalic atraumatic
NECK: Supple. No JVD Carotid Bruits
RESPIRATORY: Lungs clear to auscultation. No crackles wheezes stridor
CVS: S1, S2 normal. RRR. No murmur, rub or gallop.
ABDOMEN: Soft, non-tender. No distension. BS+/normal.
EXTREMITIES: No peripheral cyanosis or edema.
IMAGING SYSTEM ADMINISTRATOR: AOx3 Conversant Coherent some memory issues word finding difficulties noted strength 5/5 all ext's Immediate and Delayed Recall intact
IMPRESSION:
89F paroxysmal afib HTN HLD GERD from home w AMS. Patient was recently here for afib rvr, underwent successful GABO/cardioversion and was discharged day prior current presentation. Patient and daughter confirm that she was well last night following
return to home. Morning follow, however, patient felt unwell, not her usual self, felt confused and lightheaded. She did not know where she was and had trouble getting to her bathroom from her bed. Patient called daughter, not knowing how to call
911, prompting daughter to call for her. ED evaluation largely unremarkable, CT head neg. Patient's last medication she took was Eliquis from night prior, did not take her morning meds. Symptoms largely improved during ED evaluation, daughter
notes some memory issues persist, patient asking repetitive questions, not normal for her. Hypertensive but otherwise vitals signs stable on room air.
PLAN:
#acute metabolic encephalopathy due to CVA
CT Head appreciated no acute abn's
Brain MRI appreciated
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
Additional smaller nonhemorrhagic left thalamic infarct. Questionable additional tiny punctate acute/subacute infarct in the high left frontoparietal lobe.
neurochecks
Speech and Swallow eval appreciated no dysphagia
PT/OT eval recommended Acute Rehab
Permissive HTN <220/120 completed, goal normotension
ECHO recently done, no need to repeat
Fall precautions
Neg Orthostatic Vitals
CTA head neck appreciated no significant stenosis/occlusion, small b/l pleural effusion (stable respiratory status room air)
Neuro eval appreciated cont Eliquis, statin switched from pravastatin to 80 mg Atorvastatin, patient was instructed not expect to return to driving especially based on her right homonymous hemianopsia
#Possible simple partial sz contributing to confusion episodes
per daughter pt periodically mid-sentence starts reporting feeling confused like she's 'in a dream'
-possible delirium v s/p cva
Follow up Neuro eval appreciated routine EEG pending
Holding home zyrtec given episodes confusion noted as above
avoid benzos
#Recent Hx Afib RVR s/p successful GABO/Cardioverion 12/24
-Cont Eliquis and Cardizem with holding parameters
#anemia of chronic disease
monitor
#essential HTN/HLD
-Cardizem w/ holding parameters
-irbesartan resumed with holding parameters
-statin continued
#prediabetes
A1c 6.0
#GERD
-PPI continued
#DVT prophylaxis
-Eliquis
#CODE status
-full code.
Discussed with patient and patient's daughter Dara
Anticipated Discharge: Within 24 hours
Subjective/Interval History
-
Date of Service: December 29, 2024
mental status appears to be better today
Objective Data
-
Labs:
Laboratory Results
12/29/24
07:05
WBC 7.3
Hgb 11.4 L
Hct 33.9 L
Plt Count 165
Sodium 137
Potassium 4.4
Chloride 107
Carbon Dioxide 25
BUN 25 H
Creatinine 0.9
Glucose 109 H
Calcium 9.4
Vital Signs:
Vital Signs
Temp Pulse Resp BP Pulse Ox
97.7 F 63 18 125/60 98
12/29/24 08:26 12/29/24 09:57 12/29/24 08:26 12/29/24 09:57 12/29/24 08:26
I&O
12/28/24 12/29/24 12/30/24
06:59 06:59 06:59
Intake Total 720 / 720 1200 / 1200
Balance 720 / 720 1200 / 1200
Review of Systems
-
History Source: Patient
All other systems: Not reviewed unless documented
Data Reviewed
-
MRI: Report Reviewed by me
Labs: Labs Reviewed by me
[2024-12-29 15:54] VITALS: BP 122/54
[2024-12-29] MEDS: LIPITOR 80 MG PO (17:27)
[2024-12-29] MEDS: METAMUCIL, KONSYL 1 PACKET PO (19:55)
[2024-12-29 23:13] VITALS: BP 138/52
[2024-12-30 07:00] VITALS: BP 153/68
[2024-12-30 08:13] LABS: Hematocrit 35.3 % (37.0-47.0); Hemoglobin 11.6 g/dL (12.0-16.0); Mean Corp Hgb Conc. 32.9 g/dL (33.0-37.0); Mean Corpuscular Volume 91.9 fL (81.0-99.0); Platelet Count 164 10^3/uL (130-400); Red Cell Dist. Width 13.6 % (11.5-14.5)
--- NOTE | 2024-12-30 09:05 | EEG.RPT ---
Electroencephalogram Report
Recording
Date of EE12/29/24
Type of EEG: Routine
Length of EEG recordin minutes
Done with Video Recording: Yes
Patient Status: Inpatient
Recording Conditions: Awake, Drowsy and Asleep
Hyperventilation Performed: No
Photic Stimulation Performed: Yes
Report
LESS THAN 1 HOUR EEG REPORT
LESS THAN 1 HOUR EEG INTERPRETATION:
Likely unremarkable EEG for age
CLINICAL CORRELATION:
Although normative values have not been established for a person of this advanced age, the patient�s symmetry of the background suggested that this study was unremarkable.
A normal EEG does not rule out a diagnosis of epilepsy. If clinical suspicion for seizure persists, a prolonged recording may be warranted.
Clinical correlation is advised.
METHODS:
A 21 channel digitized electroencephalogram (EEG) was performed using the 10/20 international system of electrode placement and one-lead of ECG recorded. Persyst quantitative EEG analysis was performed.
ELECTROENCEPHALOGRAPHER IMPRESSION(S):
Quality of study
Good
Background
There was an unremarkable anterior-posterior voltage gradient of alpha frequency.
With eye opening the background activity changed to a low voltage mixture of frequencies.
There were no significant asymmetries of background activity noted.
Sleep
Drowsiness present
Stage 1 sleep recorded
Stage 2 sleep recorded
Photic Stimulation
Present driving at some intermittent flash frequencies symmetrically
ECG
Normal sinus rhythm
[2024-12-30] MEDS: THERAGRAN 1 TABLET PO (09:13)
[2024-12-30] MEDS: PROTONIX 40 MG PO (09:13)
[2024-12-30] MEDS: CARDIZEM CD 120 MG PO (09:13)
[2024-12-30 09:14] LABS: Blood Urea Nitrogen 23 mg/dl (7-17); Calcium 9.2 mg/dl (8.4-10.2); Carbon Dioxide 25 mmol/L (22-30); Chloride 107 mmol/L (98-107); Estimated Creatinine Clearance 41 ml/min; Glucose 110 mg/dl (70-99); Magnesium 1.9 mg/dl (1.6-2.3); Potassium 4.5 mmol/L (3.5-5.1); Sodium 139 mmol/L (135-145); eGFR > 60.00
[2024-12-30] MEDS: VITAMIN D3 (cholecalciferol) 25 MCG PO (09:14)
[2024-12-30] MEDS: RESTASIS 0.05% OPHTHALMIC EMULSION 1 DROPS BOTH EYES (09:14)
[2024-12-30] MEDS: ELIQUIS 5 MG PO (09:14)
[2024-12-30] MEDS: TYLENOL 650 MG PO (09:18)
[2024-12-30] MEDS: AVAPRO 150 MG PO (09:37)
--- NOTE | 2024-12-30 11:21 | CM ---
Patient has been approved for acute rehab today, Auth received for [facility], 7 days acute rehab, Auth [id number], Ref # [id number], physician is aware along with patient and daughter, Glory, picker packer time has been arranged for 1-2pm, nursing and
ammunition components inspector are aware. Auth provided to Addy in admissions at [facility].
[facility]
Report [id number]
--- NOTE | 2024-12-30 11:57 | W.PN.HOSP.TC ---
Addendum entered and electronically signed by Raghavendra Real MD 12/31/24 17:24:
[phone]
Original Note:
Today's Communication/Plan
-
Eliquis
Statin
EEG results pending
DC to rehab
f/u pcp, neurology outpatient
Assessment / Plan
Assessment / Plan
Physical Exam
General: No pallor, cyanosis, or jaundice.
HEENT: Throat clear. PERRLA Normocephalic atraumatic
NECK: Supple. No JVD Carotid Bruits
RESPIRATORY: Lungs clear to auscultation. No crackles wheezes stridor
CVS: S1, S2 normal. RRR. No murmur, rub or gallop.
ABDOMEN: Soft, non-tender. No distension. BS+/normal.
EXTREMITIES: No peripheral cyanosis or edema.
ASSISTANT FINANCE MANAGER: AOx3 Conversant Coherent some memory issues word finding difficulties noted strength 5/5 all ext's Immediate and Delayed Recall intact
IMPRESSION:
89F paroxysmal afib HTN HLD GERD from home w AMS. Patient was recently here for afib rvr, underwent successful GABO/cardioversion and was discharged day prior current presentation. Patient and daughter confirm that she was well last night following
return to home. Morning follow, however, patient felt unwell, not her usual self, felt confused and lightheaded. She did not know where she was and had trouble getting to her bathroom from her bed. Patient called daughter, not knowing how to call
911, prompting daughter to call for her. ED evaluation largely unremarkable, CT head neg. Patient's last medication she took was Eliquis from night prior, did not take her morning meds. Symptoms largely improved during ED evaluation, daughter
notes some memory issues persist, patient asking repetitive questions, not normal for her. Hypertensive but otherwise vitals signs stable on room air.
PLAN:
#acute metabolic encephalopathy due to CVA
� Appears to have resolved�much improved
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
#Additional smaller nonhemorrhagic left thalamic infarct. Questionable additional tiny punctate acute/subacute infarct in the high left frontoparietal lobe.
neurochecks
Speech and Swallow eval appreciated no dysphagia
PT/OT eval recommended Acute Rehab
ECHO recently done, no need to repeat
Fall precautions
Neg Orthostatic Vitals
CTA head neck appreciated no significant stenosis/occlusion, small b/l pleural effusion (stable respiratory status room air)
Neuro eval appreciated cont Eliquis, statin switched from pravastatin to 80 mg Atorvastatin, patient was instructed not expect to return to driving especially based on her right homonymous hemianopsia
#Possible simple partial sz contributing to confusion episodes
per daughter pt periodically mid-sentence starts reporting feeling confused like she's 'in a dream'
-possible delirium v s/p cva
Follow up Neuro eval appreciated routine EEG pending
avoid benzos
EEG performed
#Recent Hx Afib RVR s/p successful GABO/Cardioverion 12/24
-Cont Eliquis and Cardizem with holding parameters
#anemia of chronic disease
monitor
#essential HTN/HLD
-Cardizem w/ holding parameters
-irbesartan resumed with holding parameters
-statin continued
#prediabetes
A1c 6.0
#GERD
-PPI continued
#DVT prophylaxis
-Eliquis
#CODE status
-full code.
More than 30 minutes spent in discharge including
Final examination of the patient
Summarizing hospital stay
Instructions for continuing care to all relevant caregivers
Preparation of discharge records, prescriptions, and referral forms
Total time spent (in minutes): 36
Anticipated Discharge: Today
Subjective/Interval History
-
Date of Service: December 30, 2024
No acute events overnight
Objective Data
-
Labs:
Laboratory Results
12/30/24
06:41
WBC 6.1
Hgb 11.6 L
Hct 35.3 L
Plt Count 164
Sodium 139
Potassium 4.5
Chloride 107
Carbon Dioxide 25
BUN 23 H
Creatinine 0.8
Glucose 110 H
Calcium 9.2
Vital Signs:
Vital Signs
Temp Pulse Resp BP Pulse Ox
97.7 F 65 12 153/68 99
12/30/24 07:00 12/30/24 09:13 12/30/24 07:00 12/30/24 09:37 12/30/24 07:00
I&O
12/29/24 12/30/24 12/31/24
06:59 06:59 06:59
Intake Total 1200 / 1200 600 / 600
Balance 1200 / 1200 600 / 600
Review of Systems
-
History Source: Patient
All other systems: Not reviewed unless documented
Data Reviewed
-
MRI: Report Reviewed by me
Labs: Labs Reviewed by me
--- NOTE | 2024-12-30 12:06 | W.DS.TRANS ---
DC Summary - Welt Rander
-
Discharge Instructions:
Discharge Diagnosis/Procedures
#acute metabolic encephalopathy due to CVA,
improving
#nonhemorrhagic acute/subacute left occipital
lobe infarct.
Diet Low Cholesterol,Low Fat
Activity As tolerated
Blood Work cbc and cmp in 3-5 days with PCP
Others Tests as per neurology outpatient
Instructions:
Stand-Alone Forms:
Changes to Home Medications: Yes
Discharge Medications:
DC Medications w/original date entered in [employer]
coenzyme Q10 100 mg capsule (Co Q-10) 100 mg PO DAILY Supplement 10/02/11
omeprazole 40 mg capsule,delayed release 40 mg PO DAILY Gastrointestinal Issue 10/02/11
camphor-menthol 0.2 %-3.5 % topical gel 1 applic topical DAILYPRN PRN leg cramps 12/22/24
cholecalciferol (vitamin D3) 25 mcg (1,000 unit) tablet 25 mcg PO DAILY Supplement 12/22/24
cimetidine 200 mg tablet 200 mg PO DAILYPRN PRN heartburn 12/22/24
cyclosporine 0.05 % eye drops in a dropperette 1 drp BOTH EYES BID Eye Condition 12/22/24
docusate sodium 100 mg tablet 300 mg PO DAILY Gastrointestinal Issue 12/22/24
fluticasone propionate 50 mcg/actuation nasal spray,suspension 2 spray intranasal DAILY Allergies 12/22/24
irbesartan 150 mg tablet 150 mg PO DAILY Blood Pressure 12/22/24
lactase 3,000 unit tablet (Lactaid) 3,000 unit PO TIDPRN PRN lactose intolerance 12/22/24
meloxicam 7.5 mg tablet 7.5 mg PO DAILY Pain 12/22/24
psyllium 1 packet PO DAILYPRN PRN constipation 12/22/24
simethicone 125 mg tablet 126 mg PO DAILYPRN PRN gas 12/22/24
therapeutic multivitamin 1 tab PO DAILY Supplement 12/22/24
apixaban 5 mg tablet (Eliquis) 5 mg PO BID #60 tabs 12/24/24
diltiazem HCl 120 mg capsule,extended release 24 hr 120 mg PO DAILY #30 caps 12/24/24
acetaminophen 325 mg tablet 650 mg (2 x 325 mg) PO Q4HPRN PRN [place], mild pain, or temp >100.4F #0 tabs 12/30/24
atorvastatin 80 mg tablet 80 mg PO QPM #0 tabs 12/30/24
Home Medication Changes
acetaminophen 325 mg tablet 650 mg (2 x 325 mg) PO Q4HPRN PRN [place], mild pain, or temp >100.4F #0 tabs 12/30/24
atorvastatin 80 mg tablet 80 mg PO QPM #0 tabs 12/30/24
Pending Results: No
[2024-12-30 12:41] VITALS: BP 138/54
== END 2024-12-30 13:05 | DRG 64 ==
LOC: 4 EAST ACU 11:22
PROVIDERS: ADMITTING PHYSICIAN Internal Medicine; ATTENDING PHYSICIAN Internal Medicine; CONSULT PHYSICIAN Physical Medicine & Rehabilitation; CONSULT PHYSICIAN Psychiatry & Neurology Neurology; EMERGENCY PHYSICIAN Emergency Medicine; FAMILY PHYSICIAN Family Medicine
DX: I63.40 Cerebral infarction due to embolism of unspecified cerebral artery (principal); G93.41 Metabolic encephalopathy; I10 Essential (primary) hypertension; K21.9 Gastro-esophageal reflux disease without esophagitis; E78.00 Pure hypercholesterolemia, unspecified; I48.0 Paroxysmal atrial fibrillation; D63.8 Anemia in other chronic diseases classified elsewhere; K59.00 Constipation, unspecified; Z66 Do not resuscitate; Z79.01 Long term (current) use of anticoagulants; Z79.899 Other long term (current) drug therapy; Z86.73 Personal history of transient ischemic attack (TIA), and cerebral infarction without residual deficits; Z96.611 Presence of right artificial shoulder joint; Z96.653 Presence of artificial knee joint, bilateral; Z98.42 Cataract extraction status, left eye
CPT/HCPCS: 70450; 70496; 70498; 70551; 80048; 80053; 80061; 81003; 82607; 82728; 82746; 83036; 83735; 84100; 85025; 85027; 92523; 92610; 93005; 95816; 97110; 97116; 97129; 97163; 97167; 97530; 97535; 99285; Q9967